=== PATIENT | female | born 1995 | race Caucasian/White ===

== ENCOUNTER 2016-11-29 14:08 | Outpatient (CLI) | payer MEDICAID ==
[2016-11-29 14:51] LABS: APPEARANCE,URINE SLIGHTLY-CLOUDY; BILIRUBIN,URINE NEGATIVE (NEGATIVE); GLUCOSE, URINE NEGATIVE (NEGATIVE); KETONES,URINE NEGATIVE (NEGATIVE); LEUKOCYTE ESTERASE,URINE LARGE (NEGATIVE); NITRITE,URINE NEGATIVE (NEGATIVE); PROTEIN,URINE NEGATIVE (NEGATIVE); UROBILINOGEN,URINE NEGATIVE mg/dL (<2.0)
[2016-11-29 15:01] LABS: URINE BARBITURATES SCREEN NEGATIVE; URINE METHADONE SCREEN NEGATIVE; URINE OPIATES LOW NEGATIVE; URINE PHENCYCLIDINE SCREEN NEGATIVE
--- NOTE | 2016-11-29 16:45 | L&D Flow Sheet ---
LD Flowsheet Datetime Report Generated by CPN: 11/29/2016 16:45 Datetime: 11/29/2016 14:40 Vital Signs Stage of : OB Triage (Priscilla Independence, RN) Communication Communication: Provider at Bedside (Priscilla Rai RN) Provider Notified (Name): Dr. Rutherford notified of patient OB status and history of chronic migraine hemiplegic and chief complaints of blurry vision, photophobia, left sided numbness and weakness, and left arm weakness for the past 2 days. Patient is without any OB complaints at this time. FHT are appropriate for gestational age., denies contractions, or vaginal bleeding. Orders received to discharge patient back to the ER to be evaluated for non-OB complaint. Patient offfered opportunity to ask questions, which were answered. She is agreeable to plan of care. (Priscilla Rai RN) Datetime: 11/29/2016 14:39 Uterine Activity Monitor Mode: External; Palpation (Priscilla Rai RN) Frequency (min): none (Priscilla Cecelia, RN) Resting Tone (Palpate): Relaxed (Priscilla Rai, RN) Contraction Comments: no contractions noted or palpated. Patient denies contractions. (Priscilla Rai, RN) Assessment A Monitor Mode: External US (Priscilla Rai, RN) FHR Baseline Rate : 145 (Priscilla Rai, RN) Comments: appropriate for gestational age. Patient reports positive movement. (Priscilla Rai, ) Datetime: 11/29/2016 14:31 Vital Signs Stage of : Antepartum (Priscilla Rai RN) NBP Sys/Jacqueline/Mean (mmHg): 104 (QS system process) : 53 (QS system process) : 76 (QS system process) Pulse: 85 (QS system process) Respirations: 14 (Priscilla Rai RN) Temperature (F): 97.9 (Priscilla Rai RN) Temperature (C): 36.6 (QS system process) Temperature Route: Oral (Priscilla Rai RN) LaborFlag: Antepartum (QS system process) Datetime: 11/29/2016 14:30 Monitor Interventions for UA: [place] Adjusted (Priscilla Rai, NERY) Assessment A Monitor Mode: External US (Priscilla Rai RN) Monitor Interventions for FHR: Ultrasound Adjusted (Priscilla Rai RN) Pain Pain Scale: 0 (Priscilla Independence, RN) Pain Presence: None/Denies (Priscilla Independence, RN) Pain Type: N/A (Priscilla Independence, RN) Vaginal Exam Vaginal Bleeding: None (Priscilla Independence, RN) Maternal Assessment Level of Consciousness: Fully Conscious (Priscilla Independence, RN) DTR's/Clonus: DTRs 2+; No Clonus (Priscilla Independence, RN) Headache: Denies (Priscilla Cecelia, RN) Breath Sounds, Left: Clear and Equal (Priscilla Independence, RN) Breath Sounds, Right: Clear and Equal (Priscilla Independence, RN) Nausea/Vomiting: Denies (Priscilla Independence, RN) RUQ Epigastric Pain: Denies (Priscilla Independence, RN) Patient Care Oxygen Method: Room Air (Priscilla Rai RN) Patient Position/Activity: Right Tilt; Semi-Fowlers (Priscilla Rai RN) Comfort Measures: Breathing/Relaxation (Priscilla Rai RN) I/O Interventions: Clear Liquids Given (Priscilla Rai RN) Provider Reviewed Strip: Yes (Priscilla Rai RN) Teaching Instructional Method: Verbal; Patient Instructed; Verbalized Understanding (Priscilla Rai RN) Plan of Care: Plan of Care Discussed (Priscilla Rai RN) Unit Routine: Brooks to Room; Call Cobian; Bed; Unit Personnel; Handwashing; Flu/Illness Precautions; Monitoring (Priscilla Rai RN) Pain Management: Pain Scale/Goals; Comfort Measures (Priscilla Rai RN) Related: Common Discomforts of ; Maternal Physical Changes; Maternal Emotional Changes; Nutrition; Hydration; Activity and Rest (Priscilla Rai RN) LaborFlag: Antepartum (QS system process) Datetime: 11/29/2016 14:24 Vital Signs Stage of : Antepartum (Priscillazulma Rai, RN)
--- NOTE | 2016-11-29 16:45 | L&D Discharge Summary ---
OB Discharge Summary Datetime Report Generated by CPN: 11/29/2016 16:45 DISCHARGE DIAGNOSIS Diagnosis/Symptoms: Other Diagnoses/Symptoms Other: not in labor, no OB complaints. Sen tback to ER for eval of left sided numbness and left arm weakness. Gestation: 26.1 Number of Babies in Womb: 1 DIET/ACTIVITY/RESTRICTIONS Diet: Regular Activity: Normal Activity TEACHING/INSTRUCTIONS/REFERRALS Instructions Given To: patient Instructions Understood: Patient Verbalized Understanding; Support Person Verbalized Understanding Referrals: None DISCHARGE INFORMATION Discharged AMA: No Discharge Date/Time: 11/29/2016 14:44 Discharged To: Other Discharge Provider Name: Dr. Rutherford Accompanied By: MANAGER OF FINANCIAL REPORTING Discharge Method: Wheelchair Condition: Stable FOLLOW UP INFORMATION Follow Up With: [facility] Follow Up On: As Scheduled Follow Up Phone Number: [facility] - Comments: Patient discharged to ER for further eval of non-OB complaint of left sided numbness and left arm weakness, blurry vision, and photophobia. GENERAL INSTR-CALL PROVIDER IF: Contractions: Contractions or cramps become more frequent than 8 in one hour or 4 in 20 minutes; Regular painful contractions every 5 minutes or less for one hour. Time your contractions from the beginning of one to the beginning of the next Pressure: Pressure in your vagina or lower abdomen that may feel like the baby is pushing down Period Like Cramps: Period-like cramps or low dull backache that may come and go Cramps/Diarrhea: Abdominal cramps that may be accompanied by diarrhea Gush of Fluid/Blood: Gush of fluid or blood from your vagina (it is normal to have spotting after vaginal exam or intercourse) Vaginal Discharge: Change in the type or amount of vaginal discharge Decreased Movement: Your baby is not moving as much as usual- 4 movements in 1 hour after drinking and resting on side Temperature: Temperature greater than 100.0(F) orally
--- NOTE | 2016-11-29 16:45 | L&D General Admission ---
General Admit Datetime Report Generated by CPN: 11/29/2016 16:45 INFORMATION Patient Age: 21 (01/29/2016 16:20:QS system process) EDC: 03/06/2017 00:00 (11/29/2016 14:34:Priscilla Rai RN) : 6 (11/29/2016 14:34:Priscilla Rai RN) Livin (11/29/2016 14:34:Priscilla Rai RN) Baby, Number in Womb: 1 (11/29/2016 14:34:Priscilla Rai RN) CARE Primary Supervisor [employer] Production: [facility] (11/29/2016 14:34:Priscilla Rai RN) Adequate Care: Yes (11/29/2016 14:34:Priscilla Rai RN) Height (in): 65 (11/29/2016 14:26:QS system process) ALLERGIES Medication Allergy: Yes (11/29/2016 14:34:Priscilla Rai RN) Medication Allergies: nitrofurantoin macrocrystalline/MO/Generalized angel (11/29/2016); nitrofurantoin/MO/Generalized angel (11/29/2016) (11/29/2016 14:26:QS system process) Medication Allergies: nitrofurantoin macrocrystalline/MO/Generalized angel (10/26/2015); nitrofurantoin/MO/Generalized angel (10/26/2015) (06/17/2016 07:17:QS system process) Medication Allergies: nitrofurantoin macrocrystal/MO/Generalized angel (10/26/2015); nitrofurantoin/MO/Generalized angel (10/26/2015) (01/29/2016 16:20:QS system process) Latex Allergy: No Latex Allergies (11/29/2016 14:34:Priscilla Rai RN) Food Allergies: denies (11/29/2016 14:34:Priscilla Rai RN) Environmental Allergies: denies (11/29/2016 14:34:Priscilla Rai RN) COMMUNICATION Primary Language: Romanian (11/29/2016 14:34:Priscilla Rai RN) Communication Barrier(s): None (11/29/2016 14:34:Priscilla Rai RN) DEMOGRAPHICS Address: [address] [place] [id number] (11/29/2016 14:08:QS system process) Address: [id number] [address] (01/29/2016 16:20:QS system process) Zipcode: [phone] (01/29/2016 16:20:QS system process) Home (01/29/2016 16:20:QS system process) Work (11/29/2016 14:08:QS system process) SSN: [id number] (01/29/2016 16:20:QS system process) Next of Kin Name: KARIE ABDALLA (01/29/2016 16:20:QS system process) Next of Kin (01/29/2016 16:20:QS system process) Next of Kin Relationship: MO (01/29/2016 16:20:QS system process) Date of : 1995 (01/29/2016 16:20:QS system process) Marital Status: Single (01/29/2016 16:20:QS system process) Sex: Female (01/29/2016 16:20:QS system process) Race: (01/29/2016 16:20:QS system process) Ethnicity: Non- or (01/29/2016 16:20:QS system process) Muslim: None (11/29/2016 14:08:QS system process) Muslim: Other (01/29/2016 16:20:QS system process) DRUG AND ALCOHOL USE Alcohol: No (11/29/2016 14:34:Priscilla Rai RN) Cigarettes: Never Smoker. [id number] (11/29/2016 14:34:Priscilla Rai RN) Marijuana: No (11/29/2016 14:34:Priscilla Rai RN) Cocaine: No (11/29/2016 14:34:Priscilla Rai RN) Other Illicit Drugs: No (11/29/2016 14:34:Priscilla Rai RN) LIVING SITUATION/DISCHARGE PLAN Car Seat for Discharge: Yes (11/29/2016 14:34:Priscilla Rai RN) Adoption Requested: No (11/29/2016 14:34:Priscilla Rai RN) Pt Contact w/ Post : N/A (11/29/2016 14:34:Priscilla Rai RN) LABS Hemoglobin: 12.0 (08/06/2016 17:55:QS system process) Hematocrit: 36.1 (08/06/2016 17:55:QS system process) MCV: 81 (08/06/2016 17:55:QS system process)
--- NOTE | 2016-11-29 16:45 | L&D Current Admission ---
Current Admit Datetime Report Generated by CPN: 11/29/2016 16:45 ADMISSION INFORMATION Chief Complaint: Other (Annotations: photophobia, blurry vision, left sided numbness and left arm weakness. ) (11/29/2016 14:30:Priscilla Rai RN)
--- NOTE | 2016-11-29 16:45 | Antepartum Discharge Summary ---
Antepartum DC Datetime Report Generated by CPN: 11/29/2016 16:45 DIET/ACTIVITY/RESTRICTIONS Diet: Regular (11/29/2016 14:44:Priscilla Rai, RN) Activity: Normal Activity (11/29/2016 14:44:Priscilla Rai, RN) TEACHING/INSTRUCTIONS/REFERRALS Instructions Given To: patient (11/29/2016 14:44:Priscilla Rai, RN) Instructions Understood: Patient Verbalized Understanding; Support Person Verbalized Understanding (11/29/2016 14:44:Priscilla Rai RN) Referrals: None (11/29/2016 14:44:Priscilla Rai RN) DISCHARGE INFORMATION Discharged AMA: No (11/29/2016 14:44:Priscilla Rai RN) Discharge Date/Time: 11/29/2016 14:44 (11/29/2016 14:44:Priscilla Rai RN) Discharged To: Other (11/29/2016 14:44:Priscilla Rai RN) Discharge Provider Name: Dr. Rutherford (11/29/2016 14:44:Priscilla Rai RN) Accompanied By: HEATER ROOM HELPER (11/29/2016 14:44:Priscilla Rai RN) Discharge Method: Wheelchair (11/29/2016 14:44:Priscilla Rai RN) Condition: Stable (11/29/2016 14:44:Priscilla Rai RN) FOLLOW UP INFORMATION Follow Up With: [facility] (11/29/2016 14:44:Priscilla Rai RN) Follow Up On: As Scheduled (11/29/2016 14:44:Priscilla Rai RN) Follow Up Phone Number: [facility] - (11/29/2016 14:44:Priscilla Rai RN) Comments: Patient discharged to ER for further eval of non-OB complaint of left sided numbness and left arm weakness, blurry vision, and photophobia. (11/29/2016 14:44:Priscilla Rai RN) GENERAL INSTR-CALL PROVIDER IF: Contractions: Contractions or cramps become more frequent than 8 in one hour or 4 in 20 minutes; Regular painful contractions every 5 minutes or less for one hour. Time your contractions from the beginning of one to the beginning of the next (11/29/2016 14:44:Priscilla Rai RN) Pressure: Pressure in your vagina or lower abdomen that may feel like the baby is pushing down (11/29/2016 14:44:Priscilla Rai RN) Period Like Cramps: Period-like cramps or low dull backache that may come and go (11/29/2016 14:44:Priscilla Rai RN) Cramps/Diarrhea: Abdominal cramps that may be accompanied by diarrhea (11/29/2016 14:44:Priscilla Rai RN) Gush of Fluid/Blood: Gush of fluid or blood from your vagina (it is normal to have spotting after vaginal exam or intercourse) (11/29/2016 14:44:Priscilla Rai RN) Vaginal Discharge: Change in the type or amount of vaginal discharge (11/29/2016 14:44:Priscilla Rai RN) Decreased Movement: Your baby is not moving as much as usual- 4 movements in 1 hour after drinking and resting on side (11/29/2016 14:44:Priscilla Rai RN) Temperature: Temperature greater than 100.0(F) orally (11/29/2016 14:44:Priscilla Rai RN) Hypertension Signs/Symptoms: Severe headache which is not relieved 30 minutes after taking Tylenol(Acetaminophen); Blurry vision or spots before your eyes; Severe heartburn or pain on the upper right side of your abdomen that is not relieved by an antacid; Increased swelling in your face, hands or feet (11/29/2016 14:44:Priscilla Rai RN) Urinary Output: Decreased urinary output or dark colored urine (11/29/2016 14:44:Priscilla Rai RN)
--- NOTE | 2016-11-29 17:16 | L&D Discharge Summary ---
OB Discharge Summary Datetime Report Generated by CPN: 11/29/2016 17:16 DISCHARGE DIAGNOSIS Diagnosis/Symptoms: Other Diagnoses/Symptoms Other: not in labor, no OB complaints. Sen tback to ER for eval of left sided numbness and left arm weakness. Number of Babies in Womb: 1 DIET/ACTIVITY/RESTRICTIONS Diet: Regular Activity: Normal Activity TEACHING/INSTRUCTIONS/REFERRALS Instructions Given To: patient Instructions Understood: Patient Verbalized Understanding; Support Person Verbalized Understanding Referrals: None DISCHARGE INFORMATION Discharged AMA: No Discharge Date/Time: 11/29/2016 14:44 Discharged To: Other Discharge Provider Name: Dr. Rutherford Accompanied By: SENIOR CONSULTANT Discharge Method: Wheelchair Condition: Stable FOLLOW UP INFORMATION Follow Up With: [facility] Follow Up On: As Scheduled Follow Up Phone Number: [facility] - Comments: Patient discharged to ER for further eval of non-OB complaint of left sided numbness and left arm weakness, blurry vision, and photophobia. GENERAL INSTR-CALL PROVIDER IF: Contractions: Contractions or cramps become more frequent than 8 in one hour or 4 in 20 minutes; Regular painful contractions every 5 minutes or less for one hour. Time your contractions from the beginning of one to the beginning of the next Pressure: Pressure in your vagina or lower abdomen that may feel like the baby is pushing down Period Like Cramps: Period-like cramps or low dull backache that may come and go Cramps/Diarrhea: Abdominal cramps that may be accompanied by diarrhea Gush of Fluid/Blood: Gush of fluid or blood from your vagina (it is normal to have spotting after vaginal exam or intercourse) Vaginal Discharge: Change in the type or amount of vaginal discharge Decreased Movement: Your baby is not moving as much as usual- 4 movements in 1 hour after drinking and resting on side Temperature: Temperature greater than 100.0(F) orally
--- NOTE | 2016-11-29 22:45 | L&D Current Admission ---
Current Admit Datetime Report Generated by CPN: 11/29/2016 22:45 ADMISSION INFORMATION Chief Complaint: Other (Annotations: photophobia, blurry vision, left sided numbness and left arm weakness. ) (11/29/2016 14:30:Priscilla Rai RN)
--- NOTE | 2016-11-29 22:45 | L&D Discharge Summary ---
OB Discharge Summary Datetime Report Generated by CPN: 11/29/2016 22:45 DISCHARGE DIAGNOSIS Diagnosis/Symptoms: Other Diagnoses/Symptoms Other: not in labor, no OB complaints. Sen tback to ER for eval of left sided numbness and left arm weakness. Gestation: 26.1 Number of Babies in Womb: 1 DIET/ACTIVITY/RESTRICTIONS Diet: Regular Activity: Normal Activity TEACHING/INSTRUCTIONS/REFERRALS Instructions Given To: patient Instructions Understood: Patient Verbalized Understanding; Support Person Verbalized Understanding Referrals: None DISCHARGE INFORMATION Discharged AMA: No Discharge Date/Time: 11/29/2016 14:44 Discharged To: Other Discharge Provider Name: Dr. Rutherford Accompanied By: RUG CLEANER HAND Discharge Method: Wheelchair Condition: Stable FOLLOW UP INFORMATION Follow Up With: [facility] Follow Up On: As Scheduled Follow Up Phone Number: [facility] - Comments: Patient discharged to ER for further eval of non-OB complaint of left sided numbness and left arm weakness, blurry vision, and photophobia. GENERAL INSTR-CALL PROVIDER IF: Contractions: Contractions or cramps become more frequent than 8 in one hour or 4 in 20 minutes; Regular painful contractions every 5 minutes or less for one hour. Time your contractions from the beginning of one to the beginning of the next Pressure: Pressure in your vagina or lower abdomen that may feel like the baby is pushing down Period Like Cramps: Period-like cramps or low dull backache that may come and go Cramps/Diarrhea: Abdominal cramps that may be accompanied by diarrhea Gush of Fluid/Blood: Gush of fluid or blood from your vagina (it is normal to have spotting after vaginal exam or intercourse) Vaginal Discharge: Change in the type or amount of vaginal discharge Decreased Movement: Your baby is not moving as much as usual- 4 movements in 1 hour after drinking and resting on side Temperature: Temperature greater than 100.0(F) orally
--- NOTE | 2016-11-29 22:45 | Antepartum Discharge Summary ---
Antepartum DC Datetime Report Generated by CPN: 11/29/2016 22:45 DIET/ACTIVITY/RESTRICTIONS Diet: Regular (11/29/2016 14:44:Priscilla Rai, RN) Activity: Normal Activity (11/29/2016 14:44:Priscilla Rai, RN) TEACHING/INSTRUCTIONS/REFERRALS Instructions Given To: patient (11/29/2016 14:44:Priscilla Rai, RN) Instructions Understood: Patient Verbalized Understanding; Support Person Verbalized Understanding (11/29/2016 14:44:Priscilla Rai RN) Referrals: None (11/29/2016 14:44:Priscilla Rai RN) DISCHARGE INFORMATION Discharged AMA: No (11/29/2016 14:44:Priscilla Rai RN) Discharge Date/Time: 11/29/2016 14:44 (11/29/2016 14:44:Priscilla Rai RN) Discharged To: Other (11/29/2016 14:44:Priscilla Rai RN) Discharge Provider Name: Dr. Rutherford (11/29/2016 14:44:Priscilla Rai RN) Accompanied By: GREENHOUSE FLORIST (11/29/2016 14:44:Priscilla Rai RN) Discharge Method: Wheelchair (11/29/2016 14:44:Priscilla Rai RN) Condition: Stable (11/29/2016 14:44:Priscilla Rai RN) FOLLOW UP INFORMATION Follow Up With: [facility] (11/29/2016 14:44:Priscilla Rai RN) Follow Up On: As Scheduled (11/29/2016 14:44:Priscilla Rai RN) Follow Up Phone Number: [facility] - (11/29/2016 14:44:Priscilla Rai RN) Comments: Patient discharged to ER for further eval of non-OB complaint of left sided numbness and left arm weakness, blurry vision, and photophobia. (11/29/2016 14:44:Priscilla Rai RN) GENERAL INSTR-CALL PROVIDER IF: Contractions: Contractions or cramps become more frequent than 8 in one hour or 4 in 20 minutes; Regular painful contractions every 5 minutes or less for one hour. Time your contractions from the beginning of one to the beginning of the next (11/29/2016 14:44:Priscilla Rai RN) Pressure: Pressure in your vagina or lower abdomen that may feel like the baby is pushing down (11/29/2016 14:44:Priscilla Rai RN) Period Like Cramps: Period-like cramps or low dull backache that may come and go (11/29/2016 14:44:Priscilla Rai RN) Cramps/Diarrhea: Abdominal cramps that may be accompanied by diarrhea (11/29/2016 14:44:Priscilla Rai RN) Gush of Fluid/Blood: Gush of fluid or blood from your vagina (it is normal to have spotting after vaginal exam or intercourse) (11/29/2016 14:44:Priscilla Rai RN) Vaginal Discharge: Change in the type or amount of vaginal discharge (11/29/2016 14:44:Priscilla Rai RN) Decreased Movement: Your baby is not moving as much as usual- 4 movements in 1 hour after drinking and resting on side (11/29/2016 14:44:Priscilla Rai RN) Temperature: Temperature greater than 100.0(F) orally (11/29/2016 14:44:Priscilla Rai RN) Hypertension Signs/Symptoms: Severe headache which is not relieved 30 minutes after taking Tylenol(Acetaminophen); Blurry vision or spots before your eyes; Severe heartburn or pain on the upper right side of your abdomen that is not relieved by an antacid; Increased swelling in your face, hands or feet (11/29/2016 14:44:Priscilla Rai RN) Urinary Output: Decreased urinary output or dark colored urine (11/29/2016 14:44:Priscilla Rai RN)
--- NOTE | 2016-11-29 22:45 | L&D General Admission ---
General Admit Datetime Report Generated by CPN: 11/29/2016 22:45 INFORMATION Patient Age: 21 (01/29/2016 16:20:QS system process) EDC: 03/06/2017 00:00 (11/29/2016 14:34:Priscilla Rai RN) : 6 (11/29/2016 14:34:Priscilla Rai RN) Livin (11/29/2016 14:34:Priscilla Rai RN) Baby, Number in Womb: 1 (11/29/2016 14:34:Priscilla Rai RN) CARE Primary Tuck Pointer: [facility] (11/29/2016 14:34:Priscilla Rai RN) Adequate Care: Yes (11/29/2016 14:34:Priscilla Rai RN) Height (in): 65 (11/29/2016 14:26:QS system process) ALLERGIES Medication Allergy: Yes (11/29/2016 14:34:Priscilla Rai RN) Medication Allergies: nitrofurantoin macrocrystalline/MO/Generalized angel (11/29/2016); nitrofurantoin/MO/Generalized angel (11/29/2016) (11/29/2016 14:26:QS system process) Medication Allergies: nitrofurantoin macrocrystalline/MO/Generalized angel (10/26/2015); nitrofurantoin/MO/Generalized angel (10/26/2015) (06/17/2016 07:17:QS system process) Medication Allergies: nitrofurantoin macrocrystal/MO/Generalized angel (10/26/2015); nitrofurantoin/MO/Generalized angel (10/26/2015) (01/29/2016 16:20:QS system process) Latex Allergy: No Latex Allergies (11/29/2016 14:34:Priscilla Rai RN) Food Allergies: denies (11/29/2016 14:34:Priscilla Rai RN) Environmental Allergies: denies (11/29/2016 14:34:Priscilla Rai RN) COMMUNICATION Primary Language: Sami (11/29/2016 14:34:Priscilla Rai RN) Communication Barrier(s): None (11/29/2016 14:34:Priscilla Rai RN) DEMOGRAPHICS Address: [address] [place] [id number] (11/29/2016 14:08:QS system process) Address: [address] [address] (01/29/2016 16:20:QS system process) Zipcode: [phone] (01/29/2016 16:20:QS system process) Home (01/29/2016 16:20:QS system process) Work (11/29/2016 14:08:QS system process) SSN: [id number] (01/29/2016 16:20:QS system process) Next of Kin Name: KARIE ABDALLA (01/29/2016 16:20:QS system process) Next of Kin (01/29/2016 16:20:QS system process) Next of Kin Relationship: MO (01/29/2016 16:20:QS system process) Date of : 1995 (01/29/2016 16:20:QS system process) Marital Status: Single (01/29/2016 16:20:QS system process) Sex: Female (01/29/2016 16:20:QS system process) Race: (01/29/2016 16:20:QS system process) Ethnicity: Non- or (01/29/2016 16:20:QS system process) Zoroastrian: None (11/29/2016 14:08:QS system process) Zoroastrian: Other (01/29/2016 16:20:QS system process) DRUG AND ALCOHOL USE Alcohol: No (11/29/2016 14:34:Priscilla Rai RN) Cigarettes: Never Smoker. [id number] (11/29/2016 14:34:Priscilla Rai RN) Marijuana: No (11/29/2016 14:34:Priscilla Rai RN) Cocaine: No (11/29/2016 14:34:Priscilla Rai RN) Other Illicit Drugs: No (11/29/2016 14:34:Priscilla Rai RN) LIVING SITUATION/DISCHARGE PLAN Car Seat for Discharge: Yes (11/29/2016 14:34:Priscilla Rai RN) Adoption Requested: No (11/29/2016 14:34:Priscilla Rai RN) Pt Contact w/ Post : N/A (11/29/2016 14:34:Priscilla Rai RN) LABS Hemoglobin: 12.0 (08/06/2016 17:55:QS system process) Hematocrit: 36.1 (08/06/2016 17:55:QS system process) MCV: 81 (08/06/2016 17:55:QS system process)
--- NOTE | 2016-11-30 04:45 | L&D Current Admission ---
Current Admit Datetime Report Generated by CPN: 11/30/2016 04:45 ADMISSION INFORMATION Chief Complaint: Other (Annotations: photophobia, blurry vision, left sided numbness and left arm weakness. ) (11/29/2016 14:30:Priscilla Rai RN)
--- NOTE | 2016-11-30 04:45 | L&D Discharge Summary ---
OB Discharge Summary Datetime Report Generated by CPN: 11/30/2016 04:45 DISCHARGE DIAGNOSIS Diagnosis/Symptoms: Other Diagnoses/Symptoms Other: not in labor, no OB complaints. Sen tback to ER for eval of left sided numbness and left arm weakness. Gestation: 26.1 Number of Babies in Womb: 1 DIET/ACTIVITY/RESTRICTIONS Diet: Regular Activity: Normal Activity TEACHING/INSTRUCTIONS/REFERRALS Instructions Given To: patient Instructions Understood: Patient Verbalized Understanding; Support Person Verbalized Understanding Referrals: None DISCHARGE INFORMATION Discharged AMA: No Discharge Date/Time: 11/29/2016 14:44 Discharged To: Other Discharge Provider Name: Dr. Rutherford Accompanied By: JACQUARD TWINE POLISHER OPERATOR Discharge Method: Wheelchair Condition: Stable FOLLOW UP INFORMATION Follow Up With: [facility] Follow Up On: As Scheduled Follow Up Phone Number: [facility] - Comments: Patient discharged to ER for further eval of non-OB complaint of left sided numbness and left arm weakness, blurry vision, and photophobia. GENERAL INSTR-CALL PROVIDER IF: Contractions: Contractions or cramps become more frequent than 8 in one hour or 4 in 20 minutes; Regular painful contractions every 5 minutes or less for one hour. Time your contractions from the beginning of one to the beginning of the next Pressure: Pressure in your vagina or lower abdomen that may feel like the baby is pushing down Period Like Cramps: Period-like cramps or low dull backache that may come and go Cramps/Diarrhea: Abdominal cramps that may be accompanied by diarrhea Gush of Fluid/Blood: Gush of fluid or blood from your vagina (it is normal to have spotting after vaginal exam or intercourse) Vaginal Discharge: Change in the type or amount of vaginal discharge Decreased Movement: Your baby is not moving as much as usual- 4 movements in 1 hour after drinking and resting on side Temperature: Temperature greater than 100.0(F) orally
--- NOTE | 2016-11-30 04:45 | L&D General Admission ---
General Admit Datetime Report Generated by CPN: 11/30/2016 04:45 INFORMATION Patient Age: 21 (01/29/2016 16:20:QS system process) EDC: 03/06/2017 00:00 (11/29/2016 14:34:Priscilla Rai RN) : 6 (11/29/2016 14:34:Priscilla Rai RN) Livin (11/29/2016 14:34:Priscilla Rai RN) Baby, Number in Womb: 1 (11/29/2016 14:34:Priscilla Rai RN) CARE Primary Deliverer Merchandise: [facility] (11/29/2016 14:34:Priscilla Rai RN) Adequate Care: Yes (11/29/2016 14:34:Priscilla Rai RN) Height (in): 65 (11/29/2016 14:26:QS system process) ALLERGIES Medication Allergy: Yes (11/29/2016 14:34:Priscilla Rai RN) Medication Allergies: nitrofurantoin macrocrystalline/MO/Generalized angel (11/29/2016); nitrofurantoin/MO/Generalized angel (11/29/2016) (11/29/2016 14:26:QS system process) Medication Allergies: nitrofurantoin macrocrystalline/MO/Generalized angel (10/26/2015); nitrofurantoin/MO/Generalized angel (10/26/2015) (06/17/2016 07:17:QS system process) Medication Allergies: nitrofurantoin macrocrystal/MO/Generalized angel (10/26/2015); nitrofurantoin/MO/Generalized angel (10/26/2015) (01/29/2016 16:20:QS system process) Latex Allergy: No Latex Allergies (11/29/2016 14:34:Priscilla Rai RN) Food Allergies: denies (11/29/2016 14:34:Priscilla Rai RN) Environmental Allergies: denies (11/29/2016 14:34:Priscilla Rai RN) COMMUNICATION Primary Language: Welsh (11/29/2016 14:34:Priscilla Rai RN) Communication Barrier(s): None (11/29/2016 14:34:Priscilla Rai RN) DEMOGRAPHICS Address: [address] [place] [phone] (11/29/2016 14:08:QS system process) Address: [address] [address] (01/29/2016 16:20:QS system process) Zipcode: [phone] (01/29/2016 16:20:QS system process) Home (01/29/2016 16:20:QS system process) Work (11/29/2016 14:08:QS system process) SSN: [id number] (01/29/2016 16:20:QS system process) Next of Kin Name: KARIE ABDALLA (01/29/2016 16:20:QS system process) Next of Kin (01/29/2016 16:20:QS system process) Next of Kin Relationship: MO (01/29/2016 16:20:QS system process) Date of : 1995 (01/29/2016 16:20:QS system process) Marital Status: Single (01/29/2016 16:20:QS system process) Sex: Female (01/29/2016 16:20:QS system process) Race: (01/29/2016 16:20:QS system process) Ethnicity: Non- or (01/29/2016 16:20:QS system process) Congregation: None (11/29/2016 14:08:QS system process) Congregation: Other (01/29/2016 16:20:QS system process) DRUG AND ALCOHOL USE Alcohol: No (11/29/2016 14:34:Priscilla Rai RN) Cigarettes: Never Smoker. [id number] (11/29/2016 14:34:Priscilla Rai RN) Marijuana: No (11/29/2016 14:34:Priscilla Rai RN) Cocaine: No (11/29/2016 14:34:Priscilla Rai RN) Other Illicit Drugs: No (11/29/2016 14:34:Priscilla Rai RN) LIVING SITUATION/DISCHARGE PLAN Car Seat for Discharge: Yes (11/29/2016 14:34:Priscilla Rai RN) Adoption Requested: No (11/29/2016 14:34:Priscilla Rai RN) Pt Contact w/ Post : N/A (11/29/2016 14:34:Priscilla Rai RN) LABS Hemoglobin: 12.0 (08/06/2016 17:55:QS system process) Hematocrit: 36.1 (08/06/2016 17:55:QS system process) MCV: 81 (08/06/2016 17:55:QS system process)
--- NOTE | 2016-11-30 04:45 | Antepartum Discharge Summary ---
Antepartum DC Datetime Report Generated by CPN: 11/30/2016 04:45 DIET/ACTIVITY/RESTRICTIONS Diet: Regular (11/29/2016 14:44:Priscilla Rai, RN) Activity: Normal Activity (11/29/2016 14:44:Priscilla Ria, RN) TEACHING/INSTRUCTIONS/REFERRALS Instructions Given To: patient (11/29/2016 14:44:Priscilla Rai, RN) Instructions Understood: Patient Verbalized Understanding; Support Person Verbalized Understanding (11/29/2016 14:44:Priscilla Rai RN) Referrals: None (11/29/2016 14:44:Priscilla Rai RN) DISCHARGE INFORMATION Discharged AMA: No (11/29/2016 14:44:Priscilla Rai RN) Discharge Date/Time: 11/29/2016 14:44 (11/29/2016 14:44:Priscilla Rai RN) Discharged To: Other (11/29/2016 14:44:Priscilla Rai RN) Discharge Provider Name: Dr. Rutherford (11/29/2016 14:44:Priscilla Rai RN) Accompanied By: ACADEMIC SUPPORT DIRECTOR (11/29/2016 14:44:Priscilla Rai RN) Discharge Method: Wheelchair (11/29/2016 14:44:Priscilla Rai RN) Condition: Stable (11/29/2016 14:44:Priscilla Rai RN) FOLLOW UP INFORMATION Follow Up With: [facility] (11/29/2016 14:44:Priscilla Rai RN) Follow Up On: As Scheduled (11/29/2016 14:44:Priscilla Rai RN) Follow Up Phone Number: [facility] - (11/29/2016 14:44:Priscilla Rai RN) Comments: Patient discharged to ER for further eval of non-OB complaint of left sided numbness and left arm weakness, blurry vision, and photophobia. (11/29/2016 14:44:Priscilla Rai RN) GENERAL INSTR-CALL PROVIDER IF: Contractions: Contractions or cramps become more frequent than 8 in one hour or 4 in 20 minutes; Regular painful contractions every 5 minutes or less for one hour. Time your contractions from the beginning of one to the beginning of the next (11/29/2016 14:44:Priscilla Rai RN) Pressure: Pressure in your vagina or lower abdomen that may feel like the baby is pushing down (11/29/2016 14:44:Priscilla Rai RN) Period Like Cramps: Period-like cramps or low dull backache that may come and go (11/29/2016 14:44:Priscilla Rai RN) Cramps/Diarrhea: Abdominal cramps that may be accompanied by diarrhea (11/29/2016 14:44:Priscilla Rai RN) Gush of Fluid/Blood: Gush of fluid or blood from your vagina (it is normal to have spotting after vaginal exam or intercourse) (11/29/2016 14:44:Priscilla Rai RN) Vaginal Discharge: Change in the type or amount of vaginal discharge (11/29/2016 14:44:Priscilla Rai RN) Decreased Movement: Your baby is not moving as much as usual- 4 movements in 1 hour after drinking and resting on side (11/29/2016 14:44:Priscilla Rai RN) Temperature: Temperature greater than 100.0(F) orally (11/29/2016 14:44:Priscilla Rai RN) Hypertension Signs/Symptoms: Severe headache which is not relieved 30 minutes after taking Tylenol(Acetaminophen); Blurry vision or spots before your eyes; Severe heartburn or pain on the upper right side of your abdomen that is not relieved by an antacid; Increased swelling in your face, hands or feet (11/29/2016 14:44:Priscilla Rai RN) Urinary Output: Decreased urinary output or dark colored urine (11/29/2016 14:44:Priscilla Rai RN)
--- NOTE | 2016-11-30 10:45 | L&D Discharge Summary ---
OB Discharge Summary Datetime Report Generated by CPN: 11/30/2016 10:45 DISCHARGE DIAGNOSIS Diagnosis/Symptoms: Other Diagnoses/Symptoms Other: not in labor, no OB complaints. Sen tback to ER for eval of left sided numbness and left arm weakness. Gestation: 26.1 Number of Babies in Womb: 1 DIET/ACTIVITY/RESTRICTIONS Diet: Regular Activity: Normal Activity TEACHING/INSTRUCTIONS/REFERRALS Instructions Given To: patient Instructions Understood: Patient Verbalized Understanding; Support Person Verbalized Understanding Referrals: None DISCHARGE INFORMATION Discharged AMA: No Discharge Date/Time: 11/29/2016 14:44 Discharged To: Other Discharge Provider Name: Dr. Rutherford Accompanied By: NUTRITION SPECIALIST Discharge Method: Wheelchair Condition: Stable FOLLOW UP INFORMATION Follow Up With: [email or web address] Follow Up On: As Scheduled Follow Up Phone Number: [email or web address] - Comments: Patient discharged to ER for further eval of non-OB complaint of left sided numbness and left arm weakness, blurry vision, and photophobia. GENERAL INSTR-CALL PROVIDER IF: Contractions: Contractions or cramps become more frequent than 8 in one hour or 4 in 20 minutes; Regular painful contractions every 5 minutes or less for one hour. Time your contractions from the beginning of one to the beginning of the next Pressure: Pressure in your vagina or lower abdomen that may feel like the baby is pushing down Period Like Cramps: Period-like cramps or low dull backache that may come and go Cramps/Diarrhea: Abdominal cramps that may be accompanied by diarrhea Gush of Fluid/Blood: Gush of fluid or blood from your vagina (it is normal to have spotting after vaginal exam or intercourse) Vaginal Discharge: Change in the type or amount of vaginal discharge Decreased Movement: Your baby is not moving as much as usual- 4 movements in 1 hour after drinking and resting on side Temperature: Temperature greater than 100.0(F) orally
--- NOTE | 2016-11-30 10:45 | L&D Admission Assessment ---
LD ADM ASMT Datetime Report Generated by CPN: 11/30/2016 10:45 PATIENT ASSESSMENT Assessment Type: Transfer/Discharge (11/29/2016 14:45:Priscilla Montezuma, RN) Assessment Type: Transfer/Discharge (11/29/2016 14:30:Priscilla Zeeard, RN) WEIGHT Weight (lb): 187 (11/29/2016 14:26:QS system process) Weight (kg): 85.0 (11/29/2016 14:26:QS system process) PAIN Pain Scale: 0 (11/29/2016 14:30:Priscilla Rai, NERY) Pain Presence: None/Denies (11/29/2016 14:30:Priscilla Rai, NERY) Pain Type: N/A (11/29/2016 14:30:Priscilla Rai, NERY) CONTRACTIONS Frequency (min): none (11/29/2016 14:39:Priscilla Rai, NERY) Resting Tone [place]: Relaxed (11/29/2016 14:39:Priscilla Rai, NERY) Contraction Comments: no contractions noted or palpated. Patient denies contractions. (11/29/2016 14:39:Priscilla Rai, ) NEURO Level of Consciousness: Fully Conscious (11/29/2016 14:30:Priscilla Rai RN) DTR's/Clonus: DTRs 2+; No Clonus (11/29/2016 14:30:Priscilla Rai RN) Headache: Denies (11/29/2016 14:30:Priscilla Rai RN) Dizziness: No (11/29/2016 14:30:Priscilla Rai RN) Blurred Vision: Yes (11/29/2016 14:30:Priscilla Rai RN) Extremity Numbness/Tingling : None (11/29/2016 14:30:Priscilla Rai RN) Extremity Movement: Full Range of Motion (11/29/2016 14:30:Priscilla Rai RN) CARDIOVASCULAR Heart Rhythm: Regular (11/29/2016 14:30:Priscilla Rai RN) Nailbeds: [place] (11/29/2016 14:30:Priscilla Rai RN) Capillary Refill: Less than 3 Seconds (11/29/2016 14:30:Priscilla Rai RN) Lower Extremities Edema: None (11/29/2016 14:30:Priscilla Rai RN) Lower Extremities Edema Degree: None (11/29/2016 14:30:Priscilla Rai RN) Upper Extremities Edema: None (11/29/2016 14:30:Priscilla Rai RN) Upper Extremities Edema Degree: None (11/29/2016 14:30:Priscilla Rai RN) Facial Edema: None (11/29/2016 14:30:Priscilla Rai RN) Cherie's Sign Left Leg: Negative (11/29/2016 14:30:Priscilla Rai RN) Cherie's Sign Right Leg: Negative (11/29/2016 14:30:Priscilla Rai RN) DVT RISK ASSESSMENT DVT Risk Age: Age less than 41 years (11/29/2016 14:30:Priscilla Rai RN) DVT Risk BMI: BMI<31 (11/29/2016 14:30:Priscilla Rai RN) DVT Risk Surgery: Laparoscopic Surgery (>60 minutes) (11/29/2016 14:30:Priscilla Rai RN) DVT Risk Other: Women Only- or (<1 month) (11/29/2016 14:30:Priscilla Rai RN) DVT Risk Total: 3 (11/29/2016 14:30:QS system process) DVT Risk Text: High Risk (20-40%)- Consider stockings, compresssion device, pharmacological therapy per hospital policy (11/29/2016 14:30:QS system process) RESPIRATORY Respiratory Effort: Unlabored; Regular Rhythm (11/29/2016 14:30:Priscilla Rai RN) Breath Sounds, Left: Clear and Equal (11/29/2016 14:30:Priscilla Rai RN) Breath Sounds, Right: Clear and Equal (11/29/2016 14:30:Priscilla Rai RN) Cough Productivity: None (11/29/2016 14:30:Priscilla Rai, NERY) GASTROINTESTINAL Nausea/Vomiting: Denies (11/29/2016 14:30:Priscilla Rai RN) Bowel Sounds: Normoactive; All Quadrants (11/29/2016 14:30:Priscilla Rai RN) RUQ Epigastric Pain: Denies (11/29/2016 14:30:Priscilla Rai RN) Bowel Patterns: Soft, Formed Stool (11/29/2016 14:30:Priscilla Rai RN) Hemorrhoids: None (11/29/2016 14:30:Priscilla Rai RN) Diet Type: Regular diet (11/29/2016 14:30:Priscilla Rai RN) Last Meal: 11/29/2016 10:45 (11/29/2016 14:30:Priscilla Rai RN) GENITOURINARY Bladder: Nondistended (11/29/2016 14:30:Priscilla Rai, NERY) Frequency of Urination: No (11/29/2016 14:30:Priscilla Rai, RN) Urination Burning: No (11/29/2016 14:30:Priscilla Rai, NERY) CVA Tenderness: No (11/29/2016 14:30:Priscilla Rai RN) Vaginal Bleeding: None (11/29/2016 14:30:Priscilla Rai, RN) Vaginal Discharge Amount: None (11/29/2016 14:30:Priscilla Rai, RN) Vaginal Discharge Color: N/A (11/29/2016 14:30:Priscilla Rai, NERY) Vaginal Discharge Character: None (11/29/2016 14:30:Priscilla Rai, NERY) INTEGUMENTARY Skin Color: Normal for Race (11/29/2016 14:30:Priscilla Rai, NERY) Skin Temperature: Warm (11/29/2016 14:30:Priscilla Rai, RN) Skin Moisture: Dry (11/29/2016 14:30:Priscillazulma Rai, ) [facility] SKIN ASSESSMENT Vinod Scale Sensory Perception: No Impairment- Responds to verbal commands. Has no sensory deficit which would limit ability to feel or voice pain or discomfort (11/29/2016 14:30:Priscilla Rai RN) Vinod Scale Moisture: Rarely Moist- Skin is usually dry. Linen only requires changing at routine intervals (11/29/2016 14:30:Priscilla Rai RN) Vinod Scale Activity: Walks Frequently- Walks outside the room at least twice a day and inside room at least every 2 hours during the day. (11/29/2016 14:30:Priscilla Rai RN) Vinod Scale Mobility: No Limitations- Makes major and frequent changes in position without assistance (11/29/2016 14:30:Priscilla Rai RN) Vinod Scale Nutrition: Excellent- Eats most of every meal. Never refuses a meal. Usually eats a total of 4 or more servings of meat and dairy products. Occasionally eats between meals. Does not require supplementation (11/29/2016 14:30:Priscilla Rai RN) Vinod Scale Friction and Shear: No Apparent Problem- Moves in bed and in chair independently and has sufficient muscle strength to lift up completely during move. Maintains good position in bed or chair at all times (11/29/2016 14:30:Priscilla Rai RN) Vinod Scale Total: 23 (11/29/2016 14:30:QS system process) Vinod Scale Risk: No Risk of Pressure Ulcer Noted at this Time (11/29/2016 14:30:QS system process) SUPPORT Emotional State: Calm/Relaxed (11/29/2016 14:30:Priscilla Rai RN) SAFETY Call [place] Within Reach: Yes (11/29/2016 14:30:Priscilla Rai RN) Side Rails Up: Yes (11/29/2016 14:30:Priscilla Rai RN) Bed Wheels Locked: Yes (11/29/2016 14:30:Priscilla Rai RN) Arm Bands Present: Yes (11/29/2016 14:30:Priscilla Rai RN) Isolation: [place] (11/29/2016 14:30:Priscilla Rai RN) FALL SCREEN Fall Risk History of Falling: (0) No (11/29/2016 14:30:Priscilla Rai RN) Fall Risk Secondary Diagnosis: (0) No (11/29/2016 14:30:Priscilla Rai RN) Fall Risk Ambulatory Aid: (0) None/Bedrest/Wheelchair/Nurse Assist (11/29/2016 14:30:Priscilla Rai RN) Fall Risk IV Therapy: (0) No (11/29/2016 14:30:Priscilla Rai RN) Fall Risk Gait: (0) Normal/Bedrest/Immobile (11/29/2016 14:30:Priscilla Rai RN) Fall Risk Mental Status: (0) Oriented to Own Ability (11/29/2016 14:30:Priscilla Rai RN) Fall Risk Score: 0 (11/29/2016 14:30:QS system process) Fall Risk Score Definition: No Risk: No action required (11/29/2016 14:30:QS system process) RECENT TRAVEL/INFECTIOUS DISEASE Recent Exp Communicable Disease: No (11/29/2016 14:30:Priscilla Rai RN) Cough or Fever: No (11/29/2016 14:30:Priscilla Rai RN) Foreign Travel Past 10 Days: No (11/29/2016 14:30:Priscilla Rai RN) Open Wounds or Sores: No (11/29/2016 14:30:Priscilla Rai RN) Prior Antibiotic Resistance Tx: No (11/29/2016 14:30:Priscilla Rai RN) Cultures Obtained: Not Applicable (11/29/2016 14:30:Priscilla Rai RN) Isolation Initiated: No (11/29/2016 14:30:Priscilla Rai RN) Pt/Family Education: Not Applicable (11/29/2016 14:30:Priscilla Rai RN) BABY A FHR Baseline Rate (bpm) Baby A: 145 (11/29/2016 14:39:Priscilla Rai RN)
--- NOTE | 2016-11-30 10:45 | Antepartum Discharge Summary ---
Antepartum DC Datetime Report Generated by CPN: 11/30/2016 10:45 DIET/ACTIVITY/RESTRICTIONS Diet: Regular (11/29/2016 14:44:Priscilla Rai, RN) Activity: Normal Activity (11/29/2016 14:44:Priscilla Rai, RN) TEACHING/INSTRUCTIONS/REFERRALS Instructions Given To: patient (11/29/2016 14:44:Priscilla Rai, RN) Instructions Understood: Patient Verbalized Understanding; Support Person Verbalized Understanding (11/29/2016 14:44:Priscilla Rai RN) Referrals: None (11/29/2016 14:44:Priscilla Rai RN) DISCHARGE INFORMATION Discharged AMA: No (11/29/2016 14:44:Priscilla Rai RN) Discharge Date/Time: 11/29/2016 14:44 (11/29/2016 14:44:Priscilla Rai RN) Discharged To: Other (11/29/2016 14:44:Priscilla Rai RN) Discharge Provider Name: Dr. Rutherford (11/29/2016 14:44:Priscilla Rai RN) Accompanied By: TOBACCO GRADER (11/29/2016 14:44:Priscilla Rai RN) Discharge Method: Wheelchair (11/29/2016 14:44:Priscilla Rai RN) Condition: Stable (11/29/2016 14:44:Priscilla Rai RN) FOLLOW UP INFORMATION Follow Up With: [facility] (11/29/2016 14:44:Priscilla Rai RN) Follow Up On: As Scheduled (11/29/2016 14:44:Priscilla Rai RN) Follow Up Phone Number: [facility] - (11/29/2016 14:44:Priscilla Rai RN) Comments: Patient discharged to ER for further eval of non-OB complaint of left sided numbness and left arm weakness, blurry vision, and photophobia. (11/29/2016 14:44:Priscilla Rai RN) GENERAL INSTR-CALL PROVIDER IF: Contractions: Contractions or cramps become more frequent than 8 in one hour or 4 in 20 minutes; Regular painful contractions every 5 minutes or less for one hour. Time your contractions from the beginning of one to the beginning of the next (11/29/2016 14:44:Priscilla Rai RN) Pressure: Pressure in your vagina or lower abdomen that may feel like the baby is pushing down (11/29/2016 14:44:Priscilla Rai RN) Period Like Cramps: Period-like cramps or low dull backache that may come and go (11/29/2016 14:44:Priscilla Rai RN) Cramps/Diarrhea: Abdominal cramps that may be accompanied by diarrhea (11/29/2016 14:44:Priscilla Rai RN) Gush of Fluid/Blood: Gush of fluid or blood from your vagina (it is normal to have spotting after vaginal exam or intercourse) (11/29/2016 14:44:Priscilla Rai RN) Vaginal Discharge: Change in the type or amount of vaginal discharge (11/29/2016 14:44:Priscilla Rai RN) Decreased Movement: Your baby is not moving as much as usual- 4 movements in 1 hour after drinking and resting on side (11/29/2016 14:44:Priscilla Rai RN) Temperature: Temperature greater than 100.0(F) orally (11/29/2016 14:44:Priscilla Rai RN) Hypertension Signs/Symptoms: Severe headache which is not relieved 30 minutes after taking Tylenol(Acetaminophen); Blurry vision or spots before your eyes; Severe heartburn or pain on the upper right side of your abdomen that is not relieved by an antacid; Increased swelling in your face, hands or feet (11/29/2016 14:44:Priscilla Rai RN) Urinary Output: Decreased urinary output or dark colored urine (11/29/2016 14:44:Priscilla Rai RN)
--- NOTE | 2016-11-30 10:45 | L&D General Admission ---
General Admit Datetime Report Generated by CPN: 11/30/2016 10:45 INFORMATION Patient Age: 21 (01/29/2016 16:20:QS system process) EDC: 03/06/2017 00:00 (11/29/2016 14:34:Priscilla Rai RN) : 6 (11/29/2016 14:34:Priscilla Rai RN) [place] (11/29/2016 14:34:Priscilla Rai RN) Baby, Number in Womb: 1 (11/29/2016 14:34:Priscilla Rai RN) CARE Primary Assistant Professor Of Communication: [facility] (11/29/2016 14:34:Priscilla Rai RN) Adequate Care: Yes (11/29/2016 14:34:Priscilla Rai RN) Height (in): 65 (11/29/2016 14:26:QS system process) ALLERGIES Medication Allergy: Yes (11/29/2016 14:34:Priscilla Rai RN) Medication Allergies: nitrofurantoin macrocrystalline/MO/Generalized angel (11/29/2016); nitrofurantoin/MO/Generalized angel (11/29/2016) (11/29/2016 14:26:QS system process) Medication Allergies: nitrofurantoin macrocrystalline/MO/Generalized angel (10/26/2015); nitrofurantoin/MO/Generalized angel (10/26/2015) (06/17/2016 07:17:QS system process) Medication Allergies: nitrofurantoin macrocrystal/MO/Generalized angel (10/26/2015); nitrofurantoin/MO/Generalized angel (10/26/2015) (01/29/2016 16:20:QS system process) Latex Allergy: No Latex Allergies (11/29/2016 14:34:Priscilla Rai RN) Food Allergies: denies (11/29/2016 14:34:Priscilla Rai RN) Environmental Allergies: denies (11/29/2016 14:34:Priscilla Rai RN) COMMUNICATION Primary Language: Albanian (11/29/2016 14:34:Priscilla Rai RN) Communication Barrier(s): None (11/29/2016 14:34:Priscilla Rai RN) DEMOGRAPHICS Address: [address] [place] [id number] (11/29/2016 14:08:QS system process) Address: [address] [address] (01/29/2016 16:20:QS system process) Zipcode: [phone] (01/29/2016 16:20:QS system process) Home (01/29/2016 16:20:QS system process) Work (11/29/2016 14:08:QS system process) SSN: [id number] (01/29/2016 16:20:QS system process) Next of Kin Name: KARIE ABDALLA (01/29/2016 16:20:QS system process) Next of Kin (01/29/2016 16:20:QS system process) Next of Kin Relationship: MO (01/29/2016 16:20:QS system process) Date of : 1995 (01/29/2016 16:20:QS system process) Marital Status: Single (01/29/2016 16:20:QS system process) Sex: Female (01/29/2016 16:20:QS system process) Race: (01/29/2016 16:20:QS system process) Ethnicity: Non- or (01/29/2016 16:20:QS system process) Sikhism: None (11/29/2016 14:08:QS system process) Sikhism: Other (01/29/2016 16:20:QS system process) DRUG AND ALCOHOL USE Alcohol: No (11/29/2016 14:34:Priscilla Rai RN) Cigarettes: Never Smoker. [id number] (11/29/2016 14:34:Priscilla Rai RN) Marijuana: No (11/29/2016 14:34:Priscilla Rai RN) Cocaine: No (11/29/2016 14:34:Priscilla Rai RN) Other Illicit Drugs: No (11/29/2016 14:34:Priscilla Rai RN) LIVING SITUATION/DISCHARGE PLAN Car Seat for Discharge: Yes (11/29/2016 14:34:Priscilla Rai RN) Adoption Requested: No (11/29/2016 14:34:Priscilla Rai RN) Pt Contact w/ Post : N/A (11/29/2016 14:34:Priscilla Rai RN) LABS Hemoglobin: 12.0 (08/06/2016 17:55:QS system process) Hematocrit: 36.1 (08/06/2016 17:55:QS system process) MCV: 81 (08/06/2016 17:55:QS system process)
--- NOTE | 2016-11-30 10:45 | L&D Current Admission ---
Current Admit Datetime Report Generated by CPN: 11/30/2016 10:45 ADMISSION INFORMATION Chief Complaint: Other (Annotations: photophobia, blurry vision, left sided numbness and left arm weakness. ) (11/29/2016 14:30:Prisiclla Rai RN)
--- NOTE | 2016-11-30 16:45 | L&D Discharge Summary ---
OB Discharge Summary Datetime Report Generated by CPN: 11/30/2016 16:45 DISCHARGE DIAGNOSIS Diagnosis/Symptoms: Other Diagnoses/Symptoms Other: not in labor, no OB complaints. Sen tback to ER for eval of left sided numbness and left arm weakness. Gestation: 26.1 Number of Babies in Womb: 1 DIET/ACTIVITY/RESTRICTIONS Diet: Regular Activity: Normal Activity TEACHING/INSTRUCTIONS/REFERRALS Instructions Given To: patient Instructions Understood: Patient Verbalized Understanding; Support Person Verbalized Understanding Referrals: None DISCHARGE INFORMATION Discharged AMA: No Discharge Date/Time: 11/29/2016 14:44 Discharged To: Other Discharge Provider Name: Dr. Rutherford Accompanied By: SWIMMING COACH Discharge Method: Wheelchair Condition: Stable FOLLOW UP INFORMATION Follow Up With: [facility] Follow Up On: As Scheduled Follow Up Phone Number: [facility] - Comments: Patient discharged to ER for further eval of non-OB complaint of left sided numbness and left arm weakness, blurry vision, and photophobia. GENERAL INSTR-CALL PROVIDER IF: Contractions: Contractions or cramps become more frequent than 8 in one hour or 4 in 20 minutes; Regular painful contractions every 5 minutes or less for one hour. Time your contractions from the beginning of one to the beginning of the next Pressure: Pressure in your vagina or lower abdomen that may feel like the baby is pushing down Period Like Cramps: Period-like cramps or low dull backache that may come and go Cramps/Diarrhea: Abdominal cramps that may be accompanied by diarrhea Gush of Fluid/Blood: Gush of fluid or blood from your vagina (it is normal to have spotting after vaginal exam or intercourse) Vaginal Discharge: Change in the type or amount of vaginal discharge Decreased Movement: Your baby is not moving as much as usual- 4 movements in 1 hour after drinking and resting on side Temperature: Temperature greater than 100.0(F) orally
--- NOTE | 2016-11-30 22:45 | L&D Discharge Summary ---
OB Discharge Summary Datetime Report Generated by CPN: 11/30/2016 22:45 DISCHARGE DIAGNOSIS Diagnosis/Symptoms: Other Diagnoses/Symptoms Other: not in labor, no OB complaints. Sen tback to ER for eval of left sided numbness and left arm weakness. Gestation: 26.1 Number of Babies in Womb: 1 DIET/ACTIVITY/RESTRICTIONS Diet: Regular Activity: Normal Activity TEACHING/INSTRUCTIONS/REFERRALS Instructions Given To: patient Instructions Understood: Patient Verbalized Understanding; Support Person Verbalized Understanding Referrals: None DISCHARGE INFORMATION Discharged AMA: No Discharge Date/Time: 11/29/2016 14:44 Discharged To: Other Discharge Provider Name: Dr. Rutherford Accompanied By: TOY DEPARTMENT MANAGER Discharge Method: Wheelchair Condition: Stable FOLLOW UP INFORMATION Follow Up With: [facility] Follow Up On: As Scheduled Follow Up Phone Number: [facility] - Comments: Patient discharged to ER for further eval of non-OB complaint of left sided numbness and left arm weakness, blurry vision, and photophobia. GENERAL INSTR-CALL PROVIDER IF: Contractions: Contractions or cramps become more frequent than 8 in one hour or 4 in 20 minutes; Regular painful contractions every 5 minutes or less for one hour. Time your contractions from the beginning of one to the beginning of the next Pressure: Pressure in your vagina or lower abdomen that may feel like the baby is pushing down Period Like Cramps: Period-like cramps or low dull backache that may come and go Cramps/Diarrhea: Abdominal cramps that may be accompanied by diarrhea Gush of Fluid/Blood: Gush of fluid or blood from your vagina (it is normal to have spotting after vaginal exam or intercourse) Vaginal Discharge: Change in the type or amount of vaginal discharge Decreased Movement: Your baby is not moving as much as usual- 4 movements in 1 hour after drinking and resting on side Temperature: Temperature greater than 100.0(F) orally
--- NOTE | 2016-12-01 04:45 | L&D Discharge Summary ---
OB Discharge Summary Datetime Report Generated by CPN: 12/01/2016 04:45 DISCHARGE DIAGNOSIS Diagnosis/Symptoms: Other Diagnoses/Symptoms Other: not in labor, no OB complaints. Sen tback to ER for eval of left sided numbness and left arm weakness. Gestation: 26.1 Number of Babies in Womb: 1 DIET/ACTIVITY/RESTRICTIONS Diet: Regular Activity: Normal Activity TEACHING/INSTRUCTIONS/REFERRALS Instructions Given To: patient Instructions Understood: Patient Verbalized Understanding; Support Person Verbalized Understanding Referrals: None DISCHARGE INFORMATION Discharged AMA: No Discharge Date/Time: 11/29/2016 14:44 Discharged To: Other Discharge Provider Name: Dr. Rutherford Accompanied By: CASINO GAMES DEALER Discharge Method: Wheelchair Condition: Stable FOLLOW UP INFORMATION Follow Up With: [facility] Follow Up On: As Scheduled Follow Up Phone Number: [phone] - Comments: Patient discharged to ER for further eval of non-OB complaint of left sided numbness and left arm weakness, blurry vision, and photophobia. GENERAL INSTR-CALL PROVIDER IF: Contractions: Contractions or cramps become more frequent than 8 in one hour or 4 in 20 minutes; Regular painful contractions every 5 minutes or less for one hour. Time your contractions from the beginning of one to the beginning of the next Pressure: Pressure in your vagina or lower abdomen that may feel like the baby is pushing down Period Like Cramps: Period-like cramps or low dull backache that may come and go Cramps/Diarrhea: Abdominal cramps that may be accompanied by diarrhea Gush of Fluid/Blood: Gush of fluid or blood from your vagina (it is normal to have spotting after vaginal exam or intercourse) Vaginal Discharge: Change in the type or amount of vaginal discharge Decreased Movement: Your baby is not moving as much as usual- 4 movements in 1 hour after drinking and resting on side Temperature: Temperature greater than 100.0(F) orally
--- NOTE | 2016-12-01 10:45 | L&D Discharge Summary ---
OB Discharge Summary Datetime Report Generated by CPN: 12/01/2016 10:45 DISCHARGE DIAGNOSIS Diagnosis/Symptoms: Other Diagnoses/Symptoms Other: not in labor, no OB complaints. Sen tback to ER for eval of left sided numbness and left arm weakness. Gestation: 26.1 Number of Babies in Womb: 1 DIET/ACTIVITY/RESTRICTIONS Diet: Regular Activity: Normal Activity TEACHING/INSTRUCTIONS/REFERRALS Instructions Given To: patient Instructions Understood: Patient Verbalized Understanding; Support Person Verbalized Understanding Referrals: None DISCHARGE INFORMATION Discharged AMA: No Discharge Date/Time: 11/29/2016 14:44 Discharged To: Other Discharge Provider Name: Dr. Rutherford Accompanied By: UPHOLSTERY CUTTER Discharge Method: Wheelchair Condition: Stable FOLLOW UP INFORMATION Follow Up With: [facility] Follow Up On: As Scheduled Follow Up Phone Number: [facility] - Comments: Patient discharged to ER for further eval of non-OB complaint of left sided numbness and left arm weakness, blurry vision, and photophobia. GENERAL INSTR-CALL PROVIDER IF: Contractions: Contractions or cramps become more frequent than 8 in one hour or 4 in 20 minutes; Regular painful contractions every 5 minutes or less for one hour. Time your contractions from the beginning of one to the beginning of the next Pressure: Pressure in your vagina or lower abdomen that may feel like the baby is pushing down Period Like Cramps: Period-like cramps or low dull backache that may come and go Cramps/Diarrhea: Abdominal cramps that may be accompanied by diarrhea Gush of Fluid/Blood: Gush of fluid or blood from your vagina (it is normal to have spotting after vaginal exam or intercourse) Vaginal Discharge: Change in the type or amount of vaginal discharge Decreased Movement: Your baby is not moving as much as usual- 4 movements in 1 hour after drinking and resting on side Temperature: Temperature greater than 100.0(F) orally
--- NOTE | 2016-12-01 16:45 | L&D Discharge Summary ---
OB Discharge Summary Datetime Report Generated by CPN: 12/01/2016 16:45 DISCHARGE DIAGNOSIS Diagnosis/Symptoms: Other Diagnoses/Symptoms Other: not in labor, no OB complaints. Sen tback to ER for eval of left sided numbness and left arm weakness. Gestation: 26.1 Number of Babies in Womb: 1 DIET/ACTIVITY/RESTRICTIONS Diet: Regular Activity: Normal Activity TEACHING/INSTRUCTIONS/REFERRALS Instructions Given To: patient Instructions Understood: Patient Verbalized Understanding; Support Person Verbalized Understanding Referrals: None DISCHARGE INFORMATION Discharged AMA: No Discharge Date/Time: 11/29/2016 14:44 Discharged To: Other Discharge Provider Name: Dr. Rutherford Accompanied By: CIRCULAR KNIFE MACHINE CUTTER Discharge Method: Wheelchair Condition: Stable FOLLOW UP INFORMATION Follow Up With: [facility] Follow Up On: As Scheduled Follow Up Phone Number: [facility] - Comments: Patient discharged to ER for further eval of non-OB complaint of left sided numbness and left arm weakness, blurry vision, and photophobia. GENERAL INSTR-CALL PROVIDER IF: Contractions: Contractions or cramps become more frequent than 8 in one hour or 4 in 20 minutes; Regular painful contractions every 5 minutes or less for one hour. Time your contractions from the beginning of one to the beginning of the next Pressure: Pressure in your vagina or lower abdomen that may feel like the baby is pushing down Period Like Cramps: Period-like cramps or low dull backache that may come and go Cramps/Diarrhea: Abdominal cramps that may be accompanied by diarrhea Gush of Fluid/Blood: Gush of fluid or blood from your vagina (it is normal to have spotting after vaginal exam or intercourse) Vaginal Discharge: Change in the type or amount of vaginal discharge Decreased Movement: Your baby is not moving as much as usual- 4 movements in 1 hour after drinking and resting on side Temperature: Temperature greater than 100.0(F) orally
--- NOTE | 2016-12-01 22:45 | L&D Discharge Summary ---
OB Discharge Summary Datetime Report Generated by CPN: 12/01/2016 22:45 DISCHARGE DIAGNOSIS Diagnosis/Symptoms: Other Diagnoses/Symptoms Other: not in labor, no OB complaints. Sen tback to ER for eval of left sided numbness and left arm weakness. Gestation: 26.1 Number of Babies in Womb: 1 DIET/ACTIVITY/RESTRICTIONS Diet: Regular Activity: Normal Activity TEACHING/INSTRUCTIONS/REFERRALS Instructions Given To: patient Instructions Understood: Patient Verbalized Understanding; Support Person Verbalized Understanding Referrals: None DISCHARGE INFORMATION Discharged AMA: No Discharge Date/Time: 11/29/2016 14:44 Discharged To: Other Discharge Provider Name: Dr. Rutherford Accompanied By: KICK PRESS SETTER Discharge Method: Wheelchair Condition: Stable FOLLOW UP INFORMATION Follow Up With: [facility] Follow Up On: As Scheduled Follow Up Phone Number: [facility] - Comments: Patient discharged to ER for further eval of non-OB complaint of left sided numbness and left arm weakness, blurry vision, and photophobia. GENERAL INSTR-CALL PROVIDER IF: Contractions: Contractions or cramps become more frequent than 8 in one hour or 4 in 20 minutes; Regular painful contractions every 5 minutes or less for one hour. Time your contractions from the beginning of one to the beginning of the next Pressure: Pressure in your vagina or lower abdomen that may feel like the baby is pushing down Period Like Cramps: Period-like cramps or low dull backache that may come and go Cramps/Diarrhea: Abdominal cramps that may be accompanied by diarrhea Gush of Fluid/Blood: Gush of fluid or blood from your vagina (it is normal to have spotting after vaginal exam or intercourse) Vaginal Discharge: Change in the type or amount of vaginal discharge Decreased Movement: Your baby is not moving as much as usual- 4 movements in 1 hour after drinking and resting on side Temperature: Temperature greater than 100.0(F) orally
--- NOTE | 2016-12-02 04:45 | L&D Discharge Summary ---
OB Discharge Summary Datetime Report Generated by CPN: 12/02/2016 04:45 DISCHARGE DIAGNOSIS Diagnosis/Symptoms: Other Diagnoses/Symptoms Other: not in labor, no OB complaints. Sen tback to ER for eval of left sided numbness and left arm weakness. Gestation: 26.1 Number of Babies in Womb: 1 DIET/ACTIVITY/RESTRICTIONS Diet: Regular Activity: Normal Activity TEACHING/INSTRUCTIONS/REFERRALS Instructions Given To: patient Instructions Understood: Patient Verbalized Understanding; Support Person Verbalized Understanding Referrals: None DISCHARGE INFORMATION Discharged AMA: No Discharge Date/Time: 11/29/2016 14:44 Discharged To: Other Discharge Provider Name: Dr. Rutherford Accompanied By: FITTING SUPERVISOR Discharge Method: Wheelchair Condition: Stable FOLLOW UP INFORMATION Follow Up With: [facility] Follow Up On: As Scheduled Follow Up Phone Number: [facility] - Comments: Patient discharged to ER for further eval of non-OB complaint of left sided numbness and left arm weakness, blurry vision, and photophobia. GENERAL INSTR-CALL PROVIDER IF: Contractions: Contractions or cramps become more frequent than 8 in one hour or 4 in 20 minutes; Regular painful contractions every 5 minutes or less for one hour. Time your contractions from the beginning of one to the beginning of the next Pressure: Pressure in your vagina or lower abdomen that may feel like the baby is pushing down Period Like Cramps: Period-like cramps or low dull backache that may come and go Cramps/Diarrhea: Abdominal cramps that may be accompanied by diarrhea Gush of Fluid/Blood: Gush of fluid or blood from your vagina (it is normal to have spotting after vaginal exam or intercourse) Vaginal Discharge: Change in the type or amount of vaginal discharge Decreased Movement: Your baby is not moving as much as usual- 4 movements in 1 hour after drinking and resting on side Temperature: Temperature greater than 100.0(F) orally
--- NOTE | 2016-12-02 10:46 | L&D Discharge Summary ---
OB Discharge Summary Datetime Report Generated by CPN: 12/02/2016 10:45 DISCHARGE DIAGNOSIS Diagnosis/Symptoms: Other Diagnoses/Symptoms Other: not in labor, no OB complaints. Sen tback to ER for eval of left sided numbness and left arm weakness. Gestation: 26.1 Number of Babies in Womb: 1 DIET/ACTIVITY/RESTRICTIONS Diet: Regular Activity: Normal Activity TEACHING/INSTRUCTIONS/REFERRALS Instructions Given To: patient Instructions Understood: Patient Verbalized Understanding; Support Person Verbalized Understanding Referrals: None DISCHARGE INFORMATION Discharged AMA: No Discharge Date/Time: 11/29/2016 14:44 Discharged To: Other Discharge Provider Name: Dr. Rutherford Accompanied By: CLAY PROCESSING FACTORY WORKER Discharge Method: Wheelchair Condition: Stable FOLLOW UP INFORMATION Follow Up With: [facility] Follow Up On: As Scheduled Follow Up Phone Number: [facility] - Comments: Patient discharged to ER for further eval of non-OB complaint of left sided numbness and left arm weakness, blurry vision, and photophobia. GENERAL INSTR-CALL PROVIDER IF: Contractions: Contractions or cramps become more frequent than 8 in one hour or 4 in 20 minutes; Regular painful contractions every 5 minutes or less for one hour. Time your contractions from the beginning of one to the beginning of the next Pressure: Pressure in your vagina or lower abdomen that may feel like the baby is pushing down Period Like Cramps: Period-like cramps or low dull backache that may come and go Cramps/Diarrhea: Abdominal cramps that may be accompanied by diarrhea Gush of Fluid/Blood: Gush of fluid or blood from your vagina (it is normal to have spotting after vaginal exam or intercourse) Vaginal Discharge: Change in the type or amount of vaginal discharge Decreased Movement: Your baby is not moving as much as usual- 4 movements in 1 hour after drinking and resting on side Temperature: Temperature greater than 100.0(F) orally
--- NOTE | 2016-12-02 16:45 | L&D Discharge Summary ---
OB Discharge Summary Datetime Report Generated by CPN: 12/02/2016 16:45 DISCHARGE DIAGNOSIS Diagnosis/Symptoms: Other Diagnoses/Symptoms Other: not in labor, no OB complaints. Sen tback to ER for eval of left sided numbness and left arm weakness. Gestation: 26.1 Number of Babies in Womb: 1 DIET/ACTIVITY/RESTRICTIONS Diet: Regular Activity: Normal Activity TEACHING/INSTRUCTIONS/REFERRALS Instructions Given To: patient Instructions Understood: Patient Verbalized Understanding; Support Person Verbalized Understanding Referrals: None DISCHARGE INFORMATION Discharged AMA: No Discharge Date/Time: 11/29/2016 14:44 Discharged To: Other Discharge Provider Name: Dr. Rutherford Accompanied By: AIR CONDITIONING MECHANIC INDUSTRIAL Discharge Method: Wheelchair Condition: Stable FOLLOW UP INFORMATION Follow Up With: [facility] Follow Up On: As Scheduled Follow Up Phone Number: [facility] - Comments: Patient discharged to ER for further eval of non-OB complaint of left sided numbness and left arm weakness, blurry vision, and photophobia. GENERAL INSTR-CALL PROVIDER IF: Contractions: Contractions or cramps become more frequent than 8 in one hour or 4 in 20 minutes; Regular painful contractions every 5 minutes or less for one hour. Time your contractions from the beginning of one to the beginning of the next Pressure: Pressure in your vagina or lower abdomen that may feel like the baby is pushing down Period Like Cramps: Period-like cramps or low dull backache that may come and go Cramps/Diarrhea: Abdominal cramps that may be accompanied by diarrhea Gush of Fluid/Blood: Gush of fluid or blood from your vagina (it is normal to have spotting after vaginal exam or intercourse) Vaginal Discharge: Change in the type or amount of vaginal discharge Decreased Movement: Your baby is not moving as much as usual- 4 movements in 1 hour after drinking and resting on side Temperature: Temperature greater than 100.0(F) orally
--- NOTE | 2016-12-02 22:45 | L&D Discharge Summary ---
OB Discharge Summary Datetime Report Generated by CPN: 12/02/2016 22:45 DISCHARGE DIAGNOSIS Diagnosis/Symptoms: Other Diagnoses/Symptoms Other: not in labor, no OB complaints. Sen tback to ER for eval of left sided numbness and left arm weakness. Gestation: 26.1 Number of Babies in Womb: 1 DIET/ACTIVITY/RESTRICTIONS Diet: Regular Activity: Normal Activity TEACHING/INSTRUCTIONS/REFERRALS Instructions Given To: patient Instructions Understood: Patient Verbalized Understanding; Support Person Verbalized Understanding Referrals: None DISCHARGE INFORMATION Discharged AMA: No Discharge Date/Time: 11/29/2016 14:44 Discharged To: Other Discharge Provider Name: Dr. Rutherford Accompanied By: COMPUTER COMPOSITOR Discharge Method: Wheelchair Condition: Stable FOLLOW UP INFORMATION Follow Up With: [facility] Follow Up On: As Scheduled Follow Up Phone Number: [facility] - Comments: Patient discharged to ER for further eval of non-OB complaint of left sided numbness and left arm weakness, blurry vision, and photophobia. GENERAL INSTR-CALL PROVIDER IF: Contractions: Contractions or cramps become more frequent than 8 in one hour or 4 in 20 minutes; Regular painful contractions every 5 minutes or less for one hour. Time your contractions from the beginning of one to the beginning of the next Pressure: Pressure in your vagina or lower abdomen that may feel like the baby is pushing down Period Like Cramps: Period-like cramps or low dull backache that may come and go Cramps/Diarrhea: Abdominal cramps that may be accompanied by diarrhea Gush of Fluid/Blood: Gush of fluid or blood from your vagina (it is normal to have spotting after vaginal exam or intercourse) Vaginal Discharge: Change in the type or amount of vaginal discharge Decreased Movement: Your baby is not moving as much as usual- 4 movements in 1 hour after drinking and resting on side Temperature: Temperature greater than 100.0(F) orally
--- NOTE | 2016-12-03 04:46 | L&D Discharge Summary ---
OB Discharge Summary Datetime Report Generated by CPN: 12/03/2016 04:45 DISCHARGE DIAGNOSIS Diagnosis/Symptoms: Other Diagnoses/Symptoms Other: not in labor, no OB complaints. Sen tback to ER for eval of left sided numbness and left arm weakness. Gestation: 26.1 Number of Babies in Womb: 1 DIET/ACTIVITY/RESTRICTIONS Diet: Regular Activity: Normal Activity TEACHING/INSTRUCTIONS/REFERRALS Instructions Given To: patient Instructions Understood: Patient Verbalized Understanding; Support Person Verbalized Understanding Referrals: None DISCHARGE INFORMATION Discharged AMA: No Discharge Date/Time: 11/29/2016 14:44 Discharged To: Other Discharge Provider Name: Dr. Rutherford Accompanied By: SPINNING LATHE OPERATOR Discharge Method: Wheelchair Condition: Stable FOLLOW UP INFORMATION Follow Up With: [facility] Follow Up On: As Scheduled Follow Up Phone Number: [facility] - Comments: Patient discharged to ER for further eval of non-OB complaint of left sided numbness and left arm weakness, blurry vision, and photophobia. GENERAL INSTR-CALL PROVIDER IF: Contractions: Contractions or cramps become more frequent than 8 in one hour or 4 in 20 minutes; Regular painful contractions every 5 minutes or less for one hour. Time your contractions from the beginning of one to the beginning of the next Pressure: Pressure in your vagina or lower abdomen that may feel like the baby is pushing down Period Like Cramps: Period-like cramps or low dull backache that may come and go Cramps/Diarrhea: Abdominal cramps that may be accompanied by diarrhea Gush of Fluid/Blood: Gush of fluid or blood from your vagina (it is normal to have spotting after vaginal exam or intercourse) Vaginal Discharge: Change in the type or amount of vaginal discharge Decreased Movement: Your baby is not moving as much as usual- 4 movements in 1 hour after drinking and resting on side Temperature: Temperature greater than 100.0(F) orally
--- NOTE | 2016-12-03 10:46 | L&D Discharge Summary ---
OB Discharge Summary Datetime Report Generated by CPN: 12/03/2016 10:45 DISCHARGE DIAGNOSIS Diagnosis/Symptoms: Other Diagnoses/Symptoms Other: not in labor, no OB complaints. Sen tback to ER for eval of left sided numbness and left arm weakness. Gestation: 26.1 Number of Babies in Womb: 1 DIET/ACTIVITY/RESTRICTIONS Diet: Regular Activity: Normal Activity TEACHING/INSTRUCTIONS/REFERRALS Instructions Given To: patient Instructions Understood: Patient Verbalized Understanding; Support Person Verbalized Understanding Referrals: None DISCHARGE INFORMATION Discharged AMA: No Discharge Date/Time: 11/29/2016 14:44 Discharged To: Other Discharge Provider Name: Dr. Rutherford Accompanied By: MARKER HAND Discharge Method: Wheelchair Condition: Stable FOLLOW UP INFORMATION Follow Up With: [facility] Follow Up On: As Scheduled Follow Up Phone Number: [facility] - Comments: Patient discharged to ER for further eval of non-OB complaint of left sided numbness and left arm weakness, blurry vision, and photophobia. GENERAL INSTR-CALL PROVIDER IF: Contractions: Contractions or cramps become more frequent than 8 in one hour or 4 in 20 minutes; Regular painful contractions every 5 minutes or less for one hour. Time your contractions from the beginning of one to the beginning of the next Pressure: Pressure in your vagina or lower abdomen that may feel like the baby is pushing down Period Like Cramps: Period-like cramps or low dull backache that may come and go Cramps/Diarrhea: Abdominal cramps that may be accompanied by diarrhea Gush of Fluid/Blood: Gush of fluid or blood from your vagina (it is normal to have spotting after vaginal exam or intercourse) Vaginal Discharge: Change in the type or amount of vaginal discharge Decreased Movement: Your baby is not moving as much as usual- 4 movements in 1 hour after drinking and resting on side Temperature: Temperature greater than 100.0(F) orally
--- NOTE | 2016-12-03 16:46 | L&D Discharge Summary ---
OB Discharge Summary Datetime Report Generated by CPN: 12/03/2016 16:45 DISCHARGE DIAGNOSIS Diagnosis/Symptoms: Other Diagnoses/Symptoms Other: not in labor, no OB complaints. Sen tback to ER for eval of left sided numbness and left arm weakness. Gestation: 26.1 Number of Babies in Womb: 1 DIET/ACTIVITY/RESTRICTIONS Diet: Regular Activity: Normal Activity TEACHING/INSTRUCTIONS/REFERRALS Instructions Given To: patient Instructions Understood: Patient Verbalized Understanding; Support Person Verbalized Understanding Referrals: None DISCHARGE INFORMATION Discharged AMA: No Discharge Date/Time: 11/29/2016 14:44 Discharged To: Other Discharge Provider Name: Dr. Rutherford Accompanied By: PERINATAL COORDINATOR Discharge Method: Wheelchair Condition: Stable FOLLOW UP INFORMATION Follow Up With: [facility] Follow Up On: As Scheduled Follow Up Phone Number: [facility] - Comments: Patient discharged to ER for further eval of non-OB complaint of left sided numbness and left arm weakness, blurry vision, and photophobia. GENERAL INSTR-CALL PROVIDER IF: Contractions: Contractions or cramps become more frequent than 8 in one hour or 4 in 20 minutes; Regular painful contractions every 5 minutes or less for one hour. Time your contractions from the beginning of one to the beginning of the next Pressure: Pressure in your vagina or lower abdomen that may feel like the baby is pushing down Period Like Cramps: Period-like cramps or low dull backache that may come and go Cramps/Diarrhea: Abdominal cramps that may be accompanied by diarrhea Gush of Fluid/Blood: Gush of fluid or blood from your vagina (it is normal to have spotting after vaginal exam or intercourse) Vaginal Discharge: Change in the type or amount of vaginal discharge Decreased Movement: Your baby is not moving as much as usual- 4 movements in 1 hour after drinking and resting on side Temperature: Temperature greater than 100.0(F) orally
--- NOTE | 2016-12-03 22:46 | L&D Discharge Summary ---
OB Discharge Summary Datetime Report Generated by CPN: 12/03/2016 22:45 DISCHARGE DIAGNOSIS Diagnosis/Symptoms: Other Diagnoses/Symptoms Other: not in labor, no OB complaints. Sen tback to ER for eval of left sided numbness and left arm weakness. Gestation: 26.1 Number of Babies in Womb: 1 DIET/ACTIVITY/RESTRICTIONS Diet: Regular Activity: Normal Activity TEACHING/INSTRUCTIONS/REFERRALS Instructions Given To: patient Instructions Understood: Patient Verbalized Understanding; Support Person Verbalized Understanding Referrals: None DISCHARGE INFORMATION Discharged AMA: No Discharge Date/Time: 11/29/2016 14:44 Discharged To: Other Discharge Provider Name: Dr. Rutherford Accompanied By: PIGMENT FURNACE TENDER Discharge Method: Wheelchair Condition: Stable FOLLOW UP INFORMATION Follow Up With: [facility] Follow Up On: As Scheduled Follow Up Phone Number: [facility] - Comments: Patient discharged to ER for further eval of non-OB complaint of left sided numbness and left arm weakness, blurry vision, and photophobia. GENERAL INSTR-CALL PROVIDER IF: Contractions: Contractions or cramps become more frequent than 8 in one hour or 4 in 20 minutes; Regular painful contractions every 5 minutes or less for one hour. Time your contractions from the beginning of one to the beginning of the next Pressure: Pressure in your vagina or lower abdomen that may feel like the baby is pushing down Period Like Cramps: Period-like cramps or low dull backache that may come and go Cramps/Diarrhea: Abdominal cramps that may be accompanied by diarrhea Gush of Fluid/Blood: Gush of fluid or blood from your vagina (it is normal to have spotting after vaginal exam or intercourse) Vaginal Discharge: Change in the type or amount of vaginal discharge Decreased Movement: Your baby is not moving as much as usual- 4 movements in 1 hour after drinking and resting on side Temperature: Temperature greater than 100.0(F) orally
--- NOTE | 2016-12-04 04:46 | L&D Discharge Summary ---
OB Discharge Summary Datetime Report Generated by CPN: 12/04/2016 04:45 DISCHARGE DIAGNOSIS Diagnosis/Symptoms: Other Diagnoses/Symptoms Other: not in labor, no OB complaints. Sen tback to ER for eval of left sided numbness and left arm weakness. Gestation: 26.1 Number of Babies in Womb: 1 DIET/ACTIVITY/RESTRICTIONS Diet: Regular Activity: Normal Activity TEACHING/INSTRUCTIONS/REFERRALS Instructions Given To: patient Instructions Understood: Patient Verbalized Understanding; Support Person Verbalized Understanding Referrals: None DISCHARGE INFORMATION Discharged AMA: No Discharge Date/Time: 11/29/2016 14:44 Discharged To: Other Discharge Provider Name: Dr. Rutherford Accompanied By: ON CALL Discharge Method: Wheelchair Condition: Stable FOLLOW UP INFORMATION Follow Up With: [facility] Follow Up On: As Scheduled Follow Up Phone Number: [facility] - Comments: Patient discharged to ER for further eval of non-OB complaint of left sided numbness and left arm weakness, blurry vision, and photophobia. GENERAL INSTR-CALL PROVIDER IF: Contractions: Contractions or cramps become more frequent than 8 in one hour or 4 in 20 minutes; Regular painful contractions every 5 minutes or less for one hour. Time your contractions from the beginning of one to the beginning of the next Pressure: Pressure in your vagina or lower abdomen that may feel like the baby is pushing down Period Like Cramps: Period-like cramps or low dull backache that may come and go Cramps/Diarrhea: Abdominal cramps that may be accompanied by diarrhea Gush of Fluid/Blood: Gush of fluid or blood from your vagina (it is normal to have spotting after vaginal exam or intercourse) Vaginal Discharge: Change in the type or amount of vaginal discharge Decreased Movement: Your baby is not moving as much as usual- 4 movements in 1 hour after drinking and resting on side Temperature: Temperature greater than 100.0(F) orally
--- NOTE | 2016-12-04 10:46 | L&D Discharge Summary ---
OB Discharge Summary Datetime Report Generated by CPN: 12/04/2016 10:45 DISCHARGE DIAGNOSIS Diagnosis/Symptoms: Other Diagnoses/Symptoms Other: not in labor, no OB complaints. Sen tback to ER for eval of left sided numbness and left arm weakness. Gestation: 26.1 Number of Babies in Womb: 1 DIET/ACTIVITY/RESTRICTIONS Diet: Regular Activity: Normal Activity TEACHING/INSTRUCTIONS/REFERRALS Instructions Given To: patient Instructions Understood: Patient Verbalized Understanding; Support Person Verbalized Understanding Referrals: None DISCHARGE INFORMATION Discharged AMA: No Discharge Date/Time: 11/29/2016 14:44 Discharged To: Other Discharge Provider Name: Dr. Rutherford Accompanied By: SUPERVISOR STEEL DIVISION Discharge Method: Wheelchair Condition: Stable FOLLOW UP INFORMATION Follow Up With: [facility] Follow Up On: As Scheduled Follow Up Phone Number: [facility] - Comments: Patient discharged to ER for further eval of non-OB complaint of left sided numbness and left arm weakness, blurry vision, and photophobia. GENERAL INSTR-CALL PROVIDER IF: Contractions: Contractions or cramps become more frequent than 8 in one hour or 4 in 20 minutes; Regular painful contractions every 5 minutes or less for one hour. Time your contractions from the beginning of one to the beginning of the next Pressure: Pressure in your vagina or lower abdomen that may feel like the baby is pushing down Period Like Cramps: Period-like cramps or low dull backache that may come and go Cramps/Diarrhea: Abdominal cramps that may be accompanied by diarrhea Gush of Fluid/Blood: Gush of fluid or blood from your vagina (it is normal to have spotting after vaginal exam or intercourse) Vaginal Discharge: Change in the type or amount of vaginal discharge Decreased Movement: Your baby is not moving as much as usual- 4 movements in 1 hour after drinking and resting on side Temperature: Temperature greater than 100.0(F) orally
--- NOTE | 2016-12-04 16:46 | L&D Discharge Summary ---
OB Discharge Summary Datetime Report Generated by CPN: 12/04/2016 16:45 DISCHARGE DIAGNOSIS Diagnosis/Symptoms: Other Diagnoses/Symptoms Other: not in labor, no OB complaints. Sen tback to ER for eval of left sided numbness and left arm weakness. Gestation: 26.1 Number of Babies in Womb: 1 DIET/ACTIVITY/RESTRICTIONS Diet: Regular Activity: Normal Activity TEACHING/INSTRUCTIONS/REFERRALS Instructions Given To: patient Instructions Understood: Patient Verbalized Understanding; Support Person Verbalized Understanding Referrals: None DISCHARGE INFORMATION Discharged AMA: No Discharge Date/Time: 11/29/2016 14:44 Discharged To: Other Discharge Provider Name: Dr. Rutherford Accompanied By: REGISTERED NURSE MIDWIFE Discharge Method: Wheelchair Condition: Stable FOLLOW UP INFORMATION Follow Up With: [facility] Follow Up On: As Scheduled Follow Up Phone Number: [facility] - Comments: Patient discharged to ER for further eval of non-OB complaint of left sided numbness and left arm weakness, blurry vision, and photophobia. GENERAL INSTR-CALL PROVIDER IF: Contractions: Contractions or cramps become more frequent than 8 in one hour or 4 in 20 minutes; Regular painful contractions every 5 minutes or less for one hour. Time your contractions from the beginning of one to the beginning of the next Pressure: Pressure in your vagina or lower abdomen that may feel like the baby is pushing down Period Like Cramps: Period-like cramps or low dull backache that may come and go Cramps/Diarrhea: Abdominal cramps that may be accompanied by diarrhea Gush of Fluid/Blood: Gush of fluid or blood from your vagina (it is normal to have spotting after vaginal exam or intercourse) Vaginal Discharge: Change in the type or amount of vaginal discharge Decreased Movement: Your baby is not moving as much as usual- 4 movements in 1 hour after drinking and resting on side Temperature: Temperature greater than 100.0(F) orally
--- NOTE | 2016-12-04 22:45 | L&D Discharge Summary ---
OB Discharge Summary Datetime Report Generated by CPN: 12/04/2016 22:45 DISCHARGE DIAGNOSIS Diagnosis/Symptoms: Other Diagnoses/Symptoms Other: not in labor, no OB complaints. Sen tback to ER for eval of left sided numbness and left arm weakness. Gestation: 26.1 Number of Babies in Womb: 1 DIET/ACTIVITY/RESTRICTIONS Diet: Regular Activity: Normal Activity TEACHING/INSTRUCTIONS/REFERRALS Instructions Given To: patient Instructions Understood: Patient Verbalized Understanding; Support Person Verbalized Understanding Referrals: None DISCHARGE INFORMATION Discharged AMA: No Discharge Date/Time: 11/29/2016 14:44 Discharged To: Other Discharge Provider Name: Dr. Rutherford Accompanied By: SENIOR INFORMATION SYSTEMS ARCHITECT Discharge Method: Wheelchair Condition: Stable FOLLOW UP INFORMATION Follow Up With: [facility] Follow Up On: As Scheduled Follow Up Phone Number: [facility] - Comments: Patient discharged to ER for further eval of non-OB complaint of left sided numbness and left arm weakness, blurry vision, and photophobia. GENERAL INSTR-CALL PROVIDER IF: Contractions: Contractions or cramps become more frequent than 8 in one hour or 4 in 20 minutes; Regular painful contractions every 5 minutes or less for one hour. Time your contractions from the beginning of one to the beginning of the next Pressure: Pressure in your vagina or lower abdomen that may feel like the baby is pushing down Period Like Cramps: Period-like cramps or low dull backache that may come and go Cramps/Diarrhea: Abdominal cramps that may be accompanied by diarrhea Gush of Fluid/Blood: Gush of fluid or blood from your vagina (it is normal to have spotting after vaginal exam or intercourse) Vaginal Discharge: Change in the type or amount of vaginal discharge Decreased Movement: Your baby is not moving as much as usual- 4 movements in 1 hour after drinking and resting on side Temperature: Temperature greater than 100.0(F) orally
--- NOTE | 2016-12-05 04:45 | L&D Discharge Summary ---
OB Discharge Summary Datetime Report Generated by CPN: 12/05/2016 04:45 DISCHARGE DIAGNOSIS Diagnosis/Symptoms: Other Diagnoses/Symptoms Other: not in labor, no OB complaints. Sen tback to ER for eval of left sided numbness and left arm weakness. Gestation: 26.1 Number of Babies in Womb: 1 DIET/ACTIVITY/RESTRICTIONS Diet: Regular Activity: Normal Activity TEACHING/INSTRUCTIONS/REFERRALS Instructions Given To: patient Instructions Understood: Patient Verbalized Understanding; Support Person Verbalized Understanding Referrals: None DISCHARGE INFORMATION Discharged AMA: No Discharge Date/Time: 11/29/2016 14:44 Discharged To: Other Discharge Provider Name: Dr. Rutherford Accompanied By: HEATER INSTALLER Discharge Method: Wheelchair Condition: Stable FOLLOW UP INFORMATION Follow Up With: [facility] Follow Up On: As Scheduled Follow Up Phone Number: [facility] - Comments: Patient discharged to ER for further eval of non-OB complaint of left sided numbness and left arm weakness, blurry vision, and photophobia. GENERAL INSTR-CALL PROVIDER IF: Contractions: Contractions or cramps become more frequent than 8 in one hour or 4 in 20 minutes; Regular painful contractions every 5 minutes or less for one hour. Time your contractions from the beginning of one to the beginning of the next Pressure: Pressure in your vagina or lower abdomen that may feel like the baby is pushing down Period Like Cramps: Period-like cramps or low dull backache that may come and go Cramps/Diarrhea: Abdominal cramps that may be accompanied by diarrhea Gush of Fluid/Blood: Gush of fluid or blood from your vagina (it is normal to have spotting after vaginal exam or intercourse) Vaginal Discharge: Change in the type or amount of vaginal discharge Decreased Movement: Your baby is not moving as much as usual- 4 movements in 1 hour after drinking and resting on side Temperature: Temperature greater than 100.0(F) orally
--- NOTE | 2016-12-05 10:46 | L&D Discharge Summary ---
OB Discharge Summary Datetime Report Generated by CPN: 12/05/2016 10:45 DISCHARGE DIAGNOSIS Diagnosis/Symptoms: Other Diagnoses/Symptoms Other: not in labor, no OB complaints. Sen tback to ER for eval of left sided numbness and left arm weakness. Gestation: 26.1 Number of Babies in Womb: 1 DIET/ACTIVITY/RESTRICTIONS Diet: Regular Activity: Normal Activity TEACHING/INSTRUCTIONS/REFERRALS Instructions Given To: patient Instructions Understood: Patient Verbalized Understanding; Support Person Verbalized Understanding Referrals: None DISCHARGE INFORMATION Discharged AMA: No Discharge Date/Time: 11/29/2016 14:44 Discharged To: Other Discharge Provider Name: Dr. Rutherford Accompanied By: HOME SERVICE DEMONSTRATOR Discharge Method: Wheelchair Condition: Stable FOLLOW UP INFORMATION Follow Up With: [facility] Follow Up On: As Scheduled Follow Up Phone Number: [facility] - Comments: Patient discharged to ER for further eval of non-OB complaint of left sided numbness and left arm weakness, blurry vision, and photophobia. GENERAL INSTR-CALL PROVIDER IF: Contractions: Contractions or cramps become more frequent than 8 in one hour or 4 in 20 minutes; Regular painful contractions every 5 minutes or less for one hour. Time your contractions from the beginning of one to the beginning of the next Pressure: Pressure in your vagina or lower abdomen that may feel like the baby is pushing down Period Like Cramps: Period-like cramps or low dull backache that may come and go Cramps/Diarrhea: Abdominal cramps that may be accompanied by diarrhea Gush of Fluid/Blood: Gush of fluid or blood from your vagina (it is normal to have spotting after vaginal exam or intercourse) Vaginal Discharge: Change in the type or amount of vaginal discharge Decreased Movement: Your baby is not moving as much as usual- 4 movements in 1 hour after drinking and resting on side Temperature: Temperature greater than 100.0(F) orally
--- NOTE | 2016-12-05 16:45 | L&D Discharge Summary ---
OB Discharge Summary Datetime Report Generated by CPN: 12/05/2016 16:45 DISCHARGE DIAGNOSIS Diagnosis/Symptoms: Other Diagnoses/Symptoms Other: not in labor, no OB complaints. Sen tback to ER for eval of left sided numbness and left arm weakness. Gestation: 26.1 Number of Babies in Womb: 1 DIET/ACTIVITY/RESTRICTIONS Diet: Regular Activity: Normal Activity TEACHING/INSTRUCTIONS/REFERRALS Instructions Given To: patient Instructions Understood: Patient Verbalized Understanding; Support Person Verbalized Understanding Referrals: None DISCHARGE INFORMATION Discharged AMA: No Discharge Date/Time: 11/29/2016 14:44 Discharged To: Other Discharge Provider Name: Dr. Rutherford Accompanied By: BRAKE LININGS COATER Discharge Method: Wheelchair Condition: Stable FOLLOW UP INFORMATION Follow Up With: [facility] Follow Up On: As Scheduled Follow Up Phone Number: [facility] - Comments: Patient discharged to ER for further eval of non-OB complaint of left sided numbness and left arm weakness, blurry vision, and photophobia. GENERAL INSTR-CALL PROVIDER IF: Contractions: Contractions or cramps become more frequent than 8 in one hour or 4 in 20 minutes; Regular painful contractions every 5 minutes or less for one hour. Time your contractions from the beginning of one to the beginning of the next Pressure: Pressure in your vagina or lower abdomen that may feel like the baby is pushing down Period Like Cramps: Period-like cramps or low dull backache that may come and go Cramps/Diarrhea: Abdominal cramps that may be accompanied by diarrhea Gush of Fluid/Blood: Gush of fluid or blood from your vagina (it is normal to have spotting after vaginal exam or intercourse) Vaginal Discharge: Change in the type or amount of vaginal discharge Decreased Movement: Your baby is not moving as much as usual- 4 movements in 1 hour after drinking and resting on side Temperature: Temperature greater than 100.0(F) orally
--- NOTE | 2016-12-05 22:46 | L&D Discharge Summary ---
OB Discharge Summary Datetime Report Generated by CPN: 12/05/2016 22:45 DISCHARGE DIAGNOSIS Diagnosis/Symptoms: Other Diagnoses/Symptoms Other: not in labor, no OB complaints. Sen tback to ER for eval of left sided numbness and left arm weakness. Gestation: 26.1 Number of Babies in Womb: 1 DIET/ACTIVITY/RESTRICTIONS Diet: Regular Activity: Normal Activity TEACHING/INSTRUCTIONS/REFERRALS Instructions Given To: patient Instructions Understood: Patient Verbalized Understanding; Support Person Verbalized Understanding Referrals: None DISCHARGE INFORMATION Discharged AMA: No Discharge Date/Time: 11/29/2016 14:44 Discharged To: Other Discharge Provider Name: Dr. Rutherford Accompanied By: STEEL HEATER Discharge Method: Wheelchair Condition: Stable FOLLOW UP INFORMATION Follow Up With: [facility] Follow Up On: As Scheduled Follow Up Phone Number: [facility] - Comments: Patient discharged to ER for further eval of non-OB complaint of left sided numbness and left arm weakness, blurry vision, and photophobia. GENERAL INSTR-CALL PROVIDER IF: Contractions: Contractions or cramps become more frequent than 8 in one hour or 4 in 20 minutes; Regular painful contractions every 5 minutes or less for one hour. Time your contractions from the beginning of one to the beginning of the next Pressure: Pressure in your vagina or lower abdomen that may feel like the baby is pushing down Period Like Cramps: Period-like cramps or low dull backache that may come and go Cramps/Diarrhea: Abdominal cramps that may be accompanied by diarrhea Gush of Fluid/Blood: Gush of fluid or blood from your vagina (it is normal to have spotting after vaginal exam or intercourse) Vaginal Discharge: Change in the type or amount of vaginal discharge Decreased Movement: Your baby is not moving as much as usual- 4 movements in 1 hour after drinking and resting on side Temperature: Temperature greater than 100.0(F) orally
--- NOTE | 2016-12-06 04:45 | L&D Discharge Summary ---
OB Discharge Summary Datetime Report Generated by CPN: 12/06/2016 04:45 DISCHARGE DIAGNOSIS Diagnosis/Symptoms: Other Diagnoses/Symptoms Other: not in labor, no OB complaints. Sen tback to ER for eval of left sided numbness and left arm weakness. Gestation: 26.1 Number of Babies in Womb: 1 DIET/ACTIVITY/RESTRICTIONS Diet: Regular Activity: Normal Activity TEACHING/INSTRUCTIONS/REFERRALS Instructions Given To: patient Instructions Understood: Patient Verbalized Understanding; Support Person Verbalized Understanding Referrals: None DISCHARGE INFORMATION Discharged AMA: No Discharge Date/Time: 11/29/2016 14:44 Discharged To: Other Discharge Provider Name: Dr. Rutherford Accompanied By: EMULSIFICATION OPERATOR Discharge Method: Wheelchair Condition: Stable FOLLOW UP INFORMATION Follow Up With: [facility] Follow Up On: As Scheduled Follow Up Phone Number: [facility] - Comments: Patient discharged to ER for further eval of non-OB complaint of left sided numbness and left arm weakness, blurry vision, and photophobia. GENERAL INSTR-CALL PROVIDER IF: Contractions: Contractions or cramps become more frequent than 8 in one hour or 4 in 20 minutes; Regular painful contractions every 5 minutes or less for one hour. Time your contractions from the beginning of one to the beginning of the next Pressure: Pressure in your vagina or lower abdomen that may feel like the baby is pushing down Period Like Cramps: Period-like cramps or low dull backache that may come and go Cramps/Diarrhea: Abdominal cramps that may be accompanied by diarrhea Gush of Fluid/Blood: Gush of fluid or blood from your vagina (it is normal to have spotting after vaginal exam or intercourse) Vaginal Discharge: Change in the type or amount of vaginal discharge Decreased Movement: Your baby is not moving as much as usual- 4 movements in 1 hour after drinking and resting on side Temperature: Temperature greater than 100.0(F) orally
--- NOTE | 2016-12-06 10:46 | L&D Discharge Summary ---
OB Discharge Summary Datetime Report Generated by CPN: 12/06/2016 10:45 DISCHARGE DIAGNOSIS Diagnosis/Symptoms: Other Diagnoses/Symptoms Other: not in labor, no OB complaints. Sen tback to ER for eval of left sided numbness and left arm weakness. Gestation: 26.1 Number of Babies in Womb: 1 DIET/ACTIVITY/RESTRICTIONS Diet: Regular Activity: Normal Activity TEACHING/INSTRUCTIONS/REFERRALS Instructions Given To: patient Instructions Understood: Patient Verbalized Understanding; Support Person Verbalized Understanding Referrals: None DISCHARGE INFORMATION Discharged AMA: No Discharge Date/Time: 11/29/2016 14:44 Discharged To: Other Discharge Provider Name: Dr. Rutherford Accompanied By: REGIONAL FACILITIES MANAGER Discharge Method: Wheelchair Condition: Stable FOLLOW UP INFORMATION Follow Up With: [facility] Follow Up On: As Scheduled Follow Up Phone Number: [facility] - Comments: Patient discharged to ER for further eval of non-OB complaint of left sided numbness and left arm weakness, blurry vision, and photophobia. GENERAL INSTR-CALL PROVIDER IF: Contractions: Contractions or cramps become more frequent than 8 in one hour or 4 in 20 minutes; Regular painful contractions every 5 minutes or less for one hour. Time your contractions from the beginning of one to the beginning of the next Pressure: Pressure in your vagina or lower abdomen that may feel like the baby is pushing down Period Like Cramps: Period-like cramps or low dull backache that may come and go Cramps/Diarrhea: Abdominal cramps that may be accompanied by diarrhea Gush of Fluid/Blood: Gush of fluid or blood from your vagina (it is normal to have spotting after vaginal exam or intercourse) Vaginal Discharge: Change in the type or amount of vaginal discharge Decreased Movement: Your baby is not moving as much as usual- 4 movements in 1 hour after drinking and resting on side Temperature: Temperature greater than 100.0(F) orally
--- NOTE | 2016-12-06 16:46 | L&D Discharge Summary ---
OB Discharge Summary Datetime Report Generated by CPN: 12/06/2016 16:45 DISCHARGE DIAGNOSIS Diagnosis/Symptoms: Other Diagnoses/Symptoms Other: not in labor, no OB complaints. Sen tback to ER for eval of left sided numbness and left arm weakness. Gestation: 26.1 Number of Babies in Womb: 1 DIET/ACTIVITY/RESTRICTIONS Diet: Regular Activity: Normal Activity TEACHING/INSTRUCTIONS/REFERRALS Instructions Given To: patient Instructions Understood: Patient Verbalized Understanding; Support Person Verbalized Understanding Referrals: None DISCHARGE INFORMATION Discharged AMA: No Discharge Date/Time: 11/29/2016 14:44 Discharged To: Other Discharge Provider Name: Dr. Rutherford Accompanied By: CNC LATHE PROGRAMMER Discharge Method: Wheelchair Condition: Stable FOLLOW UP INFORMATION Follow Up With: [facility] Follow Up On: As Scheduled Follow Up Phone Number: [facility] - Comments: Patient discharged to ER for further eval of non-OB complaint of left sided numbness and left arm weakness, blurry vision, and photophobia. GENERAL INSTR-CALL PROVIDER IF: Contractions: Contractions or cramps become more frequent than 8 in one hour or 4 in 20 minutes; Regular painful contractions every 5 minutes or less for one hour. Time your contractions from the beginning of one to the beginning of the next Pressure: Pressure in your vagina or lower abdomen that may feel like the baby is pushing down Period Like Cramps: Period-like cramps or low dull backache that may come and go Cramps/Diarrhea: Abdominal cramps that may be accompanied by diarrhea Gush of Fluid/Blood: Gush of fluid or blood from your vagina (it is normal to have spotting after vaginal exam or intercourse) Vaginal Discharge: Change in the type or amount of vaginal discharge Decreased Movement: Your baby is not moving as much as usual- 4 movements in 1 hour after drinking and resting on side Temperature: Temperature greater than 100.0(F) orally
--- NOTE | 2016-12-06 22:46 | L&D Discharge Summary ---
OB Discharge Summary Datetime Report Generated by CPN: 12/06/2016 22:45 DISCHARGE DIAGNOSIS Diagnosis/Symptoms: Other Diagnoses/Symptoms Other: not in labor, no OB complaints. Sen tback to ER for eval of left sided numbness and left arm weakness. Gestation: 26.1 Number of Babies in Womb: 1 DIET/ACTIVITY/RESTRICTIONS Diet: Regular Activity: Normal Activity TEACHING/INSTRUCTIONS/REFERRALS Instructions Given To: patient Instructions Understood: Patient Verbalized Understanding; Support Person Verbalized Understanding Referrals: None DISCHARGE INFORMATION Discharged AMA: No Discharge Date/Time: 11/29/2016 14:44 Discharged To: Other Discharge Provider Name: Dr. Rutherford Accompanied By: MEDICAL REVIEW SPECIALIST Discharge Method: Wheelchair Condition: Stable FOLLOW UP INFORMATION Follow Up With: [facility] Follow Up On: As Scheduled Follow Up Phone Number: [facility] - Comments: Patient discharged to ER for further eval of non-OB complaint of left sided numbness and left arm weakness, blurry vision, and photophobia. GENERAL INSTR-CALL PROVIDER IF: Contractions: Contractions or cramps become more frequent than 8 in one hour or 4 in 20 minutes; Regular painful contractions every 5 minutes or less for one hour. Time your contractions from the beginning of one to the beginning of the next Pressure: Pressure in your vagina or lower abdomen that may feel like the baby is pushing down Period Like Cramps: Period-like cramps or low dull backache that may come and go Cramps/Diarrhea: Abdominal cramps that may be accompanied by diarrhea Gush of Fluid/Blood: Gush of fluid or blood from your vagina (it is normal to have spotting after vaginal exam or intercourse) Vaginal Discharge: Change in the type or amount of vaginal discharge Decreased Movement: Your baby is not moving as much as usual- 4 movements in 1 hour after drinking and resting on side Temperature: Temperature greater than 100.0(F) orally
--- NOTE | 2016-12-07 04:46 | L&D Discharge Summary ---
OB Discharge Summary Datetime Report Generated by CPN: 12/07/2016 04:45 DISCHARGE DIAGNOSIS Diagnosis/Symptoms: Other Diagnoses/Symptoms Other: not in labor, no OB complaints. Sen tback to ER for eval of left sided numbness and left arm weakness. Gestation: 26.1 Number of Babies in Womb: 1 DIET/ACTIVITY/RESTRICTIONS Diet: Regular Activity: Normal Activity TEACHING/INSTRUCTIONS/REFERRALS Instructions Given To: patient Instructions Understood: Patient Verbalized Understanding; Support Person Verbalized Understanding Referrals: None DISCHARGE INFORMATION Discharged AMA: No Discharge Date/Time: 11/29/2016 14:44 Discharged To: Other Discharge Provider Name: Dr. Rutherford Accompanied By: SAFETY INVESTIGATOR Discharge Method: Wheelchair Condition: Stable FOLLOW UP INFORMATION Follow Up With: [facility] Follow Up On: As Scheduled Follow Up Phone Number: [facility] - Comments: Patient discharged to ER for further eval of non-OB complaint of left sided numbness and left arm weakness, blurry vision, and photophobia. GENERAL INSTR-CALL PROVIDER IF: Contractions: Contractions or cramps become more frequent than 8 in one hour or 4 in 20 minutes; Regular painful contractions every 5 minutes or less for one hour. Time your contractions from the beginning of one to the beginning of the next Pressure: Pressure in your vagina or lower abdomen that may feel like the baby is pushing down Period Like Cramps: Period-like cramps or low dull backache that may come and go Cramps/Diarrhea: Abdominal cramps that may be accompanied by diarrhea Gush of Fluid/Blood: Gush of fluid or blood from your vagina (it is normal to have spotting after vaginal exam or intercourse) Vaginal Discharge: Change in the type or amount of vaginal discharge Decreased Movement: Your baby is not moving as much as usual- 4 movements in 1 hour after drinking and resting on side Temperature: Temperature greater than 100.0(F) orally
--- NOTE | 2016-12-07 10:46 | L&D Discharge Summary ---
OB Discharge Summary Datetime Report Generated by CPN: 12/07/2016 10:45 DISCHARGE DIAGNOSIS Diagnosis/Symptoms: Other Diagnoses/Symptoms Other: not in labor, no OB complaints. Sen tback to ER for eval of left sided numbness and left arm weakness. Gestation: 26.1 Number of Babies in Womb: 1 DIET/ACTIVITY/RESTRICTIONS Diet: Regular Activity: Normal Activity TEACHING/INSTRUCTIONS/REFERRALS Instructions Given To: patient Instructions Understood: Patient Verbalized Understanding; Support Person Verbalized Understanding Referrals: None DISCHARGE INFORMATION Discharged AMA: No Discharge Date/Time: 11/29/2016 14:44 Discharged To: Other Discharge Provider Name: Dr. Rutherford Accompanied By: PHARMACY SCHEDULER Discharge Method: Wheelchair Condition: Stable FOLLOW UP INFORMATION Follow Up With: [facility] Follow Up On: As Scheduled Follow Up Phone Number: [facility] - Comments: Patient discharged to ER for further eval of non-OB complaint of left sided numbness and left arm weakness, blurry vision, and photophobia. GENERAL INSTR-CALL PROVIDER IF: Contractions: Contractions or cramps become more frequent than 8 in one hour or 4 in 20 minutes; Regular painful contractions every 5 minutes or less for one hour. Time your contractions from the beginning of one to the beginning of the next Pressure: Pressure in your vagina or lower abdomen that may feel like the baby is pushing down Period Like Cramps: Period-like cramps or low dull backache that may come and go Cramps/Diarrhea: Abdominal cramps that may be accompanied by diarrhea Gush of Fluid/Blood: Gush of fluid or blood from your vagina (it is normal to have spotting after vaginal exam or intercourse) Vaginal Discharge: Change in the type or amount of vaginal discharge Decreased Movement: Your baby is not moving as much as usual- 4 movements in 1 hour after drinking and resting on side Temperature: Temperature greater than 100.0(F) orally
--- NOTE | 2016-12-07 16:46 | L&D Discharge Summary ---
OB Discharge Summary Datetime Report Generated by CPN: 12/07/2016 16:45 DISCHARGE DIAGNOSIS Diagnosis/Symptoms: Other Diagnoses/Symptoms Other: not in labor, no OB complaints. Sen tback to ER for eval of left sided numbness and left arm weakness. Gestation: 26.1 Number of Babies in Womb: 1 DIET/ACTIVITY/RESTRICTIONS Diet: Regular Activity: Normal Activity TEACHING/INSTRUCTIONS/REFERRALS Instructions Given To: patient Instructions Understood: Patient Verbalized Understanding; Support Person Verbalized Understanding Referrals: None DISCHARGE INFORMATION Discharged AMA: No Discharge Date/Time: 11/29/2016 14:44 Discharged To: Other Discharge Provider Name: Dr. Rutherford Accompanied By: CLERICAL PRODUCTION WORKER Discharge Method: Wheelchair Condition: Stable FOLLOW UP INFORMATION Follow Up With: [email or web address] Follow Up On: As Scheduled Follow Up Phone Number: [email or web address] - Comments: Patient discharged to ER for further eval of non-OB complaint of left sided numbness and left arm weakness, blurry vision, and photophobia. GENERAL INSTR-CALL PROVIDER IF: Contractions: Contractions or cramps become more frequent than 8 in one hour or 4 in 20 minutes; Regular painful contractions every 5 minutes or less for one hour. Time your contractions from the beginning of one to the beginning of the next Pressure: Pressure in your vagina or lower abdomen that may feel like the baby is pushing down Period Like Cramps: Period-like cramps or low dull backache that may come and go Cramps/Diarrhea: Abdominal cramps that may be accompanied by diarrhea Gush of Fluid/Blood: Gush of fluid or blood from your vagina (it is normal to have spotting after vaginal exam or intercourse) Vaginal Discharge: Change in the type or amount of vaginal discharge Decreased Movement: Your baby is not moving as much as usual- 4 movements in 1 hour after drinking and resting on side Temperature: Temperature greater than 100.0(F) orally
--- NOTE | 2016-12-07 22:45 | L&D Discharge Summary ---
OB Discharge Summary Datetime Report Generated by CPN: 12/07/2016 22:45 DISCHARGE DIAGNOSIS Diagnosis/Symptoms: Other Diagnoses/Symptoms Other: not in labor, no OB complaints. Sen tback to ER for eval of left sided numbness and left arm weakness. Gestation: 26.1 Number of Babies in Womb: 1 DIET/ACTIVITY/RESTRICTIONS Diet: Regular Activity: Normal Activity TEACHING/INSTRUCTIONS/REFERRALS Instructions Given To: patient Instructions Understood: Patient Verbalized Understanding; Support Person Verbalized Understanding Referrals: None DISCHARGE INFORMATION Discharged AMA: No Discharge Date/Time: 11/29/2016 14:44 Discharged To: Other Discharge Provider Name: Dr. Rutherford Accompanied By: GALVANIZING POT RUNNER Discharge Method: Wheelchair Condition: Stable FOLLOW UP INFORMATION Follow Up With: [facility] Follow Up On: As Scheduled Follow Up Phone Number: [facility] - Comments: Patient discharged to ER for further eval of non-OB complaint of left sided numbness and left arm weakness, blurry vision, and photophobia. GENERAL INSTR-CALL PROVIDER IF: Contractions: Contractions or cramps become more frequent than 8 in one hour or 4 in 20 minutes; Regular painful contractions every 5 minutes or less for one hour. Time your contractions from the beginning of one to the beginning of the next Pressure: Pressure in your vagina or lower abdomen that may feel like the baby is pushing down Period Like Cramps: Period-like cramps or low dull backache that may come and go Cramps/Diarrhea: Abdominal cramps that may be accompanied by diarrhea Gush of Fluid/Blood: Gush of fluid or blood from your vagina (it is normal to have spotting after vaginal exam or intercourse) Vaginal Discharge: Change in the type or amount of vaginal discharge Decreased Movement: Your baby is not moving as much as usual- 4 movements in 1 hour after drinking and resting on side Temperature: Temperature greater than 100.0(F) orally
--- NOTE | 2016-12-08 04:45 | L&D Discharge Summary ---
OB Discharge Summary Datetime Report Generated by CPN: 12/08/2016 04:45 DISCHARGE DIAGNOSIS Diagnosis/Symptoms: Other Diagnoses/Symptoms Other: not in labor, no OB complaints. Sen tback to ER for eval of left sided numbness and left arm weakness. Gestation: 26.1 Number of Babies in Womb: 1 DIET/ACTIVITY/RESTRICTIONS Diet: Regular Activity: Normal Activity TEACHING/INSTRUCTIONS/REFERRALS Instructions Given To: patient Instructions Understood: Patient Verbalized Understanding; Support Person Verbalized Understanding Referrals: None DISCHARGE INFORMATION Discharged AMA: No Discharge Date/Time: 11/29/2016 14:44 Discharged To: Other Discharge Provider Name: Dr. Rutherford Accompanied By: ORACLE SECURITY CONSULTANT Discharge Method: Wheelchair Condition: Stable FOLLOW UP INFORMATION Follow Up With: [facility] Follow Up On: As Scheduled Follow Up Phone Number: [facility] - Comments: Patient discharged to ER for further eval of non-OB complaint of left sided numbness and left arm weakness, blurry vision, and photophobia. GENERAL INSTR-CALL PROVIDER IF: Contractions: Contractions or cramps become more frequent than 8 in one hour or 4 in 20 minutes; Regular painful contractions every 5 minutes or less for one hour. Time your contractions from the beginning of one to the beginning of the next Pressure: Pressure in your vagina or lower abdomen that may feel like the baby is pushing down Period Like Cramps: Period-like cramps or low dull backache that may come and go Cramps/Diarrhea: Abdominal cramps that may be accompanied by diarrhea Gush of Fluid/Blood: Gush of fluid or blood from your vagina (it is normal to have spotting after vaginal exam or intercourse) Vaginal Discharge: Change in the type or amount of vaginal discharge Decreased Movement: Your baby is not moving as much as usual- 4 movements in 1 hour after drinking and resting on side Temperature: Temperature greater than 100.0(F) orally
--- NOTE | 2016-12-08 10:45 | L&D Discharge Summary ---
OB Discharge Summary Datetime Report Generated by CPN: 12/08/2016 10:45 DISCHARGE DIAGNOSIS Diagnosis/Symptoms: Other Diagnoses/Symptoms Other: not in labor, no OB complaints. Sen tback to ER for eval of left sided numbness and left arm weakness. Gestation: 26.1 Number of Babies in Womb: 1 DIET/ACTIVITY/RESTRICTIONS Diet: Regular Activity: Normal Activity TEACHING/INSTRUCTIONS/REFERRALS Instructions Given To: patient Instructions Understood: Patient Verbalized Understanding; Support Person Verbalized Understanding Referrals: None DISCHARGE INFORMATION Discharged AMA: No Discharge Date/Time: 11/29/2016 14:44 Discharged To: Other Discharge Provider Name: Dr. Rutherford Accompanied By: ENVIRONMENTAL SERVICES MANAGER Discharge Method: Wheelchair Condition: Stable FOLLOW UP INFORMATION Follow Up With: [facility] Follow Up On: As Scheduled Follow Up Phone Number: [facility] - Comments: Patient discharged to ER for further eval of non-OB complaint of left sided numbness and left arm weakness, blurry vision, and photophobia. GENERAL INSTR-CALL PROVIDER IF: Contractions: Contractions or cramps become more frequent than 8 in one hour or 4 in 20 minutes; Regular painful contractions every 5 minutes or less for one hour. Time your contractions from the beginning of one to the beginning of the next Pressure: Pressure in your vagina or lower abdomen that may feel like the baby is pushing down Period Like Cramps: Period-like cramps or low dull backache that may come and go Cramps/Diarrhea: Abdominal cramps that may be accompanied by diarrhea Gush of Fluid/Blood: Gush of fluid or blood from your vagina (it is normal to have spotting after vaginal exam or intercourse) Vaginal Discharge: Change in the type or amount of vaginal discharge Decreased Movement: Your baby is not moving as much as usual- 4 movements in 1 hour after drinking and resting on side Temperature: Temperature greater than 100.0(F) orally
== END 2016-11-29 14:44 | disposition home or self-care (01) ==
LOC: LC 14:08
PROVIDERS: ATTEND Student in an Organized Health Care Education/Training Program
PROC: 4A1HXCZ Monitoring of Products of Conception, Cardiac Rate, External Approach (ICD-10-PCS; principal; 2016-11-29)
DX: O26.892 Other specified pregnancy related conditions, second trimester (principal); R20.0 Anesthesia of skin; Z3A.26 26 weeks gestation of pregnancy; M62.81 Muscle weakness (generalized)
CPT/HCPCS: 80307; 81001

== ENCOUNTER 2016-11-29 14:52 | Emergency (ER) | payer MEDICAID ==
[2016-11-29] MEDS ORDERED: METOCLOPRAMIDE HCL INJ/PF 10 MG/2 ML SDV IV ONE (15:59)
[2016-11-29] MEDS ORDERED: DIPHENHYDRAMINE HCL 50 MG/ML VIAL IV ONE (16:00)
--- NOTE | 2016-11-29 16:11 | ER Document Report ---
ED Medical Screen (RME) - General Chief Complaint: Dizziness Stated Complaint: WEAKNESS Notes: I briefly seen and evaluated this patient in my role as physician in triage. I have initiated orders based on this initial evaluation. Please see my colleague' s documentation for complete history, physical, management, diagnosis, and ultimate disposition. My brief evaluation: Patient is EGA 26 weeks, presents with lightheadedness and numbness in the left upper extremity and face. The patient has a history of hemiplegic migraines. The last one was when she was with her prior . She had a CT at that time which was negative. She followed up with a neurologist who said that he couldn't do anything because she was . Apparently there is a family history of these migraines. Patient says that she currently does not have a headache. She has had some nausea she's had some scotoma. She denies any numbness any place else. She said that this is happened only 2 other times previously. She gets lightheaded with it. She has not passed out. She denies any fevers chills or sweats. On exam, patient alert and oriented no acute distress vital signs stable patient is afebrile nontoxic appearing. Chest sounds clear and equal bilaterally. Heart rate and rhythm are normal with no murmurs. Nonfocal neurologic exam. Medical decision making: We will initiate management of migraine with Reglan and Benadryl which I expected to be safe in this stage of . TRAVEL OUTSIDE OF THE [place] IN LAST 30 DAYS: No - Related Data Allergies/Adverse Reactions: nitrofurantoin [From Macrobid] Allergy (Intermediate, Verified 11/29/16 15:47) Generalized rash nitrofurantoin macrocrystalline [From Macrobid] Allergy (Intermediate, Verified 11/29/16 15:47) Generalized rash Past Medical History - Past Medical History Cardiac Medical History: Denies: Hx Coronary Artery Disease, Hx Heart Attack, Hx Hypertension Pulmonary Medical History: Denies: Hx Asthma, Hx Bronchitis, Hx COPD, Hx Pneumonia Neurological Medical History: 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 Denies: Hx Cerebrovascular Accident, Hx Seizures Renal/ Medical History: Denies: Hx Peritoneal Dialysis Musculoskeltal Medical History: Denies Hx Arthritis Past Surgical History: Reports: Hx Adenoidectomy, Hx Oral Surgery - wisdom. Denies: Hx Hysterectomy - Immunizations Immunizations up to date: Yes Hx Diphtheria, Pertussis, Tetanus Vaccination: Yes Physical Exam - Vital signs Vitals: Temp Pulse Resp BP Pulse Ox 97.7 F 90 18 120/64 100 11/29/16 15:03 11/29/16 15:03 11/29/16 15:03 11/29/16 15:03 11/29/16 15:03 Course - Vital Signs Vital signs: Temp Pulse Resp BP Pulse Ox 97.7 F 90 18 120/64 100 11/29/16 15:03 11/29/16 15:03 11/29/16 15:03 11/29/16 15:03 11/29/16 15:03
--- NOTE | 2016-11-29 16:31 | ER Document Report ---
ED General - General Chief Complaint: Dizziness Stated Complaint: WEAKNESS Mode of Arrival: Ambulatory Information source: Patient Notes: 21-year-old female history of hemiplegic migraine headaches who is 26 weeks presents with complaints of left upper hand numbness bilateral visual disturbance. Patient notes that she is having spots in her vision. Denies any severe headache. Patient denies any vomiting. Patient was seen by WILDLIFE POLICY PROFESSIONAL and sent for evaluation as she is stable from their standpoint Patient had similar episode with her last , and extensive family history of migraine headaches TRAVEL OUTSIDE OF THE [place] IN LAST 30 DAYS: No - HPI Onset: Just prior to arrival Onset/Duration: Sudden Quality of pain: No pain Severity: Mild Pain Level: Denies Associated symptoms: Other Exacerbated by: Denies Relieved by: Denies Similar symptoms previously: Yes Recently seen / treated by doctor: Yes - Related Data Allergies/Adverse Reactions: nitrofurantoin [From Macrobid] Allergy (Intermediate, Verified 11/29/16 15:47) Generalized rash nitrofurantoin macrocrystalline [From Macrobid] Allergy (Intermediate, Verified 11/29/16 15:47) Generalized rash Past Medical History - Social History Smoking Status: Never Smoker Cigarette use (# per day): No Chew tobacco use (# tins/day): No Smoking Education Provided: No Family History: Reviewed & Not Pertinent, CAD, CVA, DM, Hyperlipidemia, Hypertension, Thyroid Disfunction, Other - Hemiplegic migraine Patient has suicidal ideation: No Patient has homicidal ideation: No - Past Medical History Cardiac Medical History: Denies: Hx Coronary Artery Disease, Hx Heart Attack, Hx Hypertension Pulmonary Medical History: Denies: Hx Asthma, Hx Bronchitis, Hx COPD, Hx Pneumonia Neurological Medical History: 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 Denies: Hx Cerebrovascular Accident, Hx Seizures Renal/ Medical History: Denies: Hx Peritoneal Dialysis Musculoskeltal Medical History: Denies Hx Arthritis Past Surgical History: Reports: Hx Adenoidectomy, Hx Oral Surgery - wisdom. Denies: Hx Hysterectomy - Immunizations Immunizations up to date: Yes Hx Diphtheria, Pertussis, Tetanus Vaccination: Yes Review of Systems - Review of Systems Notes: REVIEW OF SYSTEMS: CONSTITUTIONAL : Denies fever, chills, or sweats. Denies recent illness. EENT: Admits to visual disturbance CARDIOVASCULAR: Denies chest pain. Denies palpitations or racing or irregular heart beat. Denies ankle edema. RESPIRATORY: Denies cough, cold, or chest congestion. Denies shortness of breath, difficulty breathing, or wheezing. GASTROINTESTINAL: Denies abdominal pain or distention. Denies nausea, vomiting , or diarrhea. Denies blood in vomitus, stools, or per rectum. Denies black, tarry stools. Denies constipation. GENITOURINARY: Denies difficulty urinating, painful urination, burning, frequency, blood in urine, or discharge. FEMALE GENITOURINARY: Denies vaginal bleeding, heavy or abnormal periods, irregular periods. Denies vaginal discharge or odor. MUSCULOSKELETAL: Denies back or neck pain or stiffness. Denies joint pain or swelling. SKIN: Denies rash, lesions or sores. HEMATOLOGIC : Denies easy bruising or bleeding. LYMPHATIC: Denies swollen, enlarged glands. NEUROLOGICAL: Miss a left hand numbness PSYCHIATRIC: Denies anxiety or stress. Denies depression, suicidal ideation, or homicidal ideation. ALL OTHER SYSTEMS REVIEWED AND NEGATIVE. Dictation was performed using [employer] voice recognition software PHYSICAL EXAMINATION: GENERAL: Well-appearing, well-nourished and in no acute distress. HEAD: Atraumatic, normocephalic. EYES: Pupils equal round and reactive to light, extraocular movements intact, conjunctiva are normal. ENT: Nares patent, oropharynx clear without exudates. Moist mucous membranes. NECK: Normal range of motion, supple without lymphadenopathy LUNGS: Breath sounds clear to auscultation bilaterally and equal. No wheezes rales or rhonchi. HEART: Regular rate and rhythm without murmurs ABDOMEN: Soft, gravid abdomen Female : deferred Musculoskeletal: Normal range of motion, no pitting or edema. No cyanosis. NEUROLOGICAL: Cranial nerves grossly intact. Normal speech, normal gait. Normal sensory, motor exams finger to nose [id number] are normal PSYCH: Normal mood, normal affect. SKIN: Warm, Dry, normal turgor, no rashes or lesions noted. Physical Exam - Vital signs Vitals: Temp Pulse Resp BP Pulse Ox 97.7 F 90 18 120/64 100 11/29/16 15:03 11/29/16 15:03 11/29/16 15:03 11/29/16 15:03 11/29/16 15:03 Course - Re-evaluation Re-evalutation: 11/29/16 16:31 neurological examination notes no deficits, patient was offered a CT of the head but she wishes to defer at this time which I believe is appropriate, patient will be treated for hemiplegic migraine headache which I believe is the cause of her symptoms as she is otherwise stable I have very low suspicion for a stroke 11/29/16 18:25 Patient notes symptoms have completely resolved, she is stable for discharge. I will discharge her home with Phenergan and follow-up with neurology otherwise patient has no complaints and is quite happy After performing a Medical Screening Examination, I estimate there is LOW risk for ACUTE GLAUCOMA, TEMPORAL ARTERITIS, MENINGITIS, INCRANIAL HEMORRHAGE, or ISCHEMIC STROKE thus I consider the discharge disposition reasonable. I have reevaluated this patient multiple times and no significant life threatening changes are noted. The patient and I have discussed the diagnosis and risks, and we agree with discharging home with close follow-up with the understanding that symptoms and presentations can change. We also discussed returning to the Emergency Department immediately if new or worsening symptoms occur. We have discussed the symptoms which are most concerning (e.g., changing or worsening symptoms, new numbness or weakness, vomiting, fever) that necessitate immediate return. - Vital Signs Vital signs: Temp Pulse Resp BP Pulse Ox 97.7 F 90 18 120/64 100 11/29/16 15:03 11/29/16 15:03 11/29/16 15:03 11/29/16 15:03 11/29/16 15:03 - Laboratory Laboratory results interpreted by me: 11/29/16 16:10 Ur Leukocyte Esterase TRACE H Discharge - Discharge Clinical Impression: Migraine headache Qualifiers: Migraine type: with aura Status migrainosus presence: without status migrainosus Intractability: not intractable Qualified Code(s): G43.109 - Migraine with aura, not intractable, without status migrainosus Condition: Stable Disposition: HOME, SELF-CARE Instructions: Antinausea Medication ([facility]) Prescriptions: Promethazine HCl [Phenergan 25 mg Tablet] 1 - 2 tab PO Q6H PRN #15 tablet PRN Reason: Referrals: MARA CUNNINGHAM MD [EMERITUS] - Follow up tomorrow
[2016-11-29] MEDS ORDERED: DIPHENHYDRAMINE HCL 50 MG CAPSULE PO ONE (17:31)
[2016-11-29] MEDS ORDERED: ACETAMINOPHEN 325 MG TABLET PO ONE (17:32)
[2016-11-29 18:03] LABS: APPEARANCE,URINE CLEAR; BILIRUBIN,URINE NEGATIVE (NEGATIVE); GLUCOSE, URINE NEGATIVE (NEGATIVE); KETONES,URINE NEGATIVE (NEGATIVE); LEUKOCYTE ESTERASE,URINE TRACE (NEGATIVE); NITRITE,URINE NEGATIVE (NEGATIVE); PROTEIN,URINE NEGATIVE (NEGATIVE); URINE SPECIFIC GRAVITY 1.005; UROBILINOGEN,URINE NEGATIVE mg/dL (<2.0)
[2016-11-29 18:34] VITALS: BP 121/64
== END 2016-11-29 18:34 | disposition home or self-care (01) ==
LOC: ER 14:52
DX: G43.109 Migraine with aura, not intractable, without status migrainosus (principal); R42 Dizziness and giddiness; R53.1 Weakness; R20.0 Anesthesia of skin
CPT/HCPCS: 99284; 81001; J3490 ×2

== ENCOUNTER 2016-12-06 18:47 | Emergency (ER) | payer MEDICAID ==
[2016-12-06 18:51] VITALS: BP 134/73
[2016-12-06] MEDS ORDERED: DIPHENHYDRAMINE HCL 25 MG CAPSULE PO ONE (19:21)
[2016-12-06] MEDS ORDERED: METOCLOPRAMIDE HCL 10 MG TABLET PO ONE (19:22)
--- NOTE | 2016-12-06 19:24 | ER Document Report ---
ED Medical Screen (RME) - General Chief Complaint: Passed Out Prior to Arrival Stated Complaint: PASSED OUT Notes: This 21-year-old female patient who is almost 28 weeks reports an episode today of passing out and no feeling on her left side. She was at work when she started to lose vision more on the right side than the left. She later developed numbness to the left upper and lower extremities. She reports she tried to drive herself home, a friend called her while she was driving, she pulled over and answered her phone and the friend told her to stop trying to drive. About that time her body stiffened up. 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 She was seen here 7 days ago for the same thing. Was 2 years ago she had an extensive workup with MRIs and MRAs CTs and echo and Dopplers. At this time she starts crying and states that she couldn't remember things and that is never happened before. She is able to tell me the exact date of her EDC. I have greeted and performed a rapid initial assessment of this patient. A comprehensive ED assessment and evaluation of the patient, analysis of test results and completion of the medical decision making process will be conducted by additional ED providers. TRAVEL OUTSIDE OF THE [place] IN LAST 30 DAYS: No - Related Data Allergies/Adverse Reactions: nitrofurantoin [From Macrobid] Allergy (Intermediate, Verified 12/06/16 19:07) Generalized rash nitrofurantoin macrocrystalline [From Macrobid] Allergy (Intermediate, Verified 12/06/16 19:07) Generalized rash Past Medical History - Past Medical History Cardiac Medical History: Denies: Hx Coronary Artery Disease, Hx Heart Attack, Hx Hypertension Pulmonary Medical History: Denies: Hx Asthma, Hx Bronchitis, Hx COPD, Hx Pneumonia Neurological Medical History: 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 Denies: Hx Cerebrovascular Accident, Hx Seizures Renal/ Medical History: Denies: Hx Peritoneal Dialysis Musculoskeltal Medical History: Denies Hx Arthritis Past Surgical History: Reports: Hx Adenoidectomy, Hx Oral Surgery - wisdom. Denies: Hx Hysterectomy - Immunizations Immunizations up to date: Yes Hx Diphtheria, Pertussis, Tetanus Vaccination: Yes Physical Exam - Vital signs Vitals: Temp Pulse Resp BP Pulse Ox 97.7 F 87 14 134/73 H 98 12/06/16 18:51 12/06/16 18:51 12/06/16 18:51 12/06/16 18:51 12/06/16 18:51 Course - Vital Signs Vital signs: Temp Pulse Resp BP Pulse Ox 97.7 F 87 14 134/73 H 98 12/06/16 18:51 12/06/16 18:51 12/06/16 18:51 12/06/16 18:51 12/06/16 18:51
[2016-12-06] MEDS ORDERED: NORMAL SALINE 1000 ML 1,000 ML IV ONE (21:18)
[2016-12-06] MEDS ORDERED: DIPHENHYDRAMINE HCL 50 MG/ML VIAL IV ONE (21:18)
[2016-12-06] MEDS ORDERED: METOCLOPRAMIDE HCL INJ/PF 10 MG/2 ML SDV IV ONE (21:18)
--- NOTE | 2016-12-06 22:34 | ER Document Report ---
ED General - General Chief Complaint: Passed Out Prior to Arrival Stated Complaint: PASSED OUT Notes: Patient is a 21-year-old female currently 28 weeks who presents with multiple complaints. She states that she has intermittently had left upper matt with the weakness and numbness as well as loss of vision in association with a headache. She states that she also had a near syncopal episode earlier today this was noted to be at a separate time from the above symptoms. She was recently seen in the emergency department for the same. She has had an extensive evaluation for these complaints in the past including MR imaging of her head and neck, carotid Dopplers all which have been normal. Denies that anything seems to trigger her symptoms. Nothing worsens or symptoms. She has not tried anything for relief of her symptoms. Her symptoms have now resolved at time of my assessment. She has not seen a primary care doctor regarding his concerns. TRAVEL OUTSIDE OF THE [place] IN LAST 30 DAYS: No - Related Data Allergies/Adverse Reactions: nitrofurantoin [From Macrobid] Allergy (Intermediate, Verified 12/06/16 19:07) Generalized rash nitrofurantoin macrocrystalline [From Macrobid] Allergy (Intermediate, Verified 12/06/16 19:07) Generalized rash Past Medical History - General Information source: Patient - Social History Smoking Status: Never Smoker Frequency of alcohol use: None Drug Abuse: None Lives with: Spouse/Significant other Family History: Reviewed & Not Pertinent, CAD, CVA, DM, Hyperlipidemia, Hypertension, Thyroid Disfunction, Other - Hemiplegic migraine Patient has suicidal ideation: No Patient has homicidal ideation: No - Past Medical History Cardiac Medical History: Denies: Hx Coronary Artery Disease, Hx Heart Attack, Hx Hypertension Pulmonary Medical History: Denies: Hx Asthma, Hx Bronchitis, Hx COPD, Hx Pneumonia Neurological Medical History: 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 Denies: Hx Cerebrovascular Accident, Hx Seizures Renal/ Medical History: Denies: Hx Peritoneal Dialysis Musculoskeltal Medical History: Denies Hx Arthritis Past Surgical History: Reports: Hx Adenoidectomy, Hx Oral Surgery - wisdom. Denies: Hx Hysterectomy - Immunizations Immunizations up to date: Yes Hx Diphtheria, Pertussis, Tetanus Vaccination: Yes Review of Systems - Review of Systems Notes: Constitutional: Negative for fever. HENT: Negative for sore throat. Eyes: Negative for visual changes. Cardiovascular: Negative for chest pain. Respiratory: Negative for shortness of breath. Gastrointestinal: Negative for abdominal pain, vomiting or diarrhea. Genitourinary: Negative for dysuria. Musculoskeletal: Negative for back pain. Skin: Negative for rash. Neurological: Negative for headaches, positive for left upper extremity weakness and numbness 10 point ROS negative except as marked above and in HPI. Physical Exam - Vital signs Vitals: Temp Pulse Resp BP Pulse Ox 97.7 F 87 14 134/73 H 98 12/06/16 18:51 12/06/16 18:51 12/06/16 18:51 12/06/16 18:51 12/06/16 18:51 Interpretation: Normal Notes: PHYSICAL EXAMINATION: GENERAL: Well-appearing, well-nourished and in no acute distress. HEAD: Atraumatic, normocephalic. EYES: Pupils equal round and reactive to light, extraocular movements intact, sclera anicteric, conjunctiva are normal. ENT: nares patent, oropharynx clear without exudates. Moist mucous membranes. NECK: Normal range of motion, supple without lymphadenopathy LUNGS: Breath sounds clear to auscultation bilaterally and equal. No wheezes rales or rhonchi. HEART: Regular rate and rhythm without murmurs ABDOMEN: Soft, nontender, normoactive bowel sounds. No guarding, no rebound. No masses appreciated. EXTREMITIES: Normal range of motion, no pitting or edema. No cyanosis. NEUROLOGICAL: Face symmetric. Tongue protrudes midline. Extraocular motions intact. Pupils are 2 mm and equally reactive. Normal speech, normal gait. 5 out of 5 strength in both the distal and proximal upper and lower extremities bilaterally. Sensation is grossly intact throughout. Finger to nose testing normal. Pronator drift normal. PSYCH: Normal mood, normal affect. SKIN: Warm, Dry, normal turgor, no rashes or lesions noted. Course - Re-evaluation Re-evalutation: 12/06/16 22:31 Patient presents with multiple vague complaints that did not appear to be concerning for any acute life-threatening pathology. Patient is presented with the exact same complaint a multitude of times in the past and had extensive MR imaging of her head and neck as well as carotid Dopplers all which have been repeatedly unremarkable. Although the patient states that she cannot move her left hand she is doing so voluntarily when I walk up to the bed and has completely normal biceps and triceps strength on testing. She also has discomfort when her forearm is bent where her IV is in place. I do not suspect an acute stroke or TIA. Vitals are within normal limits at triage and at time of discharge. Physical examination is unremarkable. Patient has tolerated oral intake without difficulty. Patient was not noted to be in distress at any point during their ER visit. At this time, based on the reassuring evaluation, I do not suspect an acute ID, pulmonary embolus, aortic dissection, acute intra- abdominal pathology, stroke, or sepsis.Will discharge with return precautions and follow-up recommendations. Verbal discharge instructions given a the bedside and opportunity for questions given. Medication warnings reviewed. Patient is in agreement with this plan and has verbalized understanding of return precautions and the need for primary care follow-up in the next 24-72 hours. - Vital Signs Vital signs: Temp Pulse Resp BP Pulse Ox 97.7 F 87 14 134/73 H 98 12/06/16 18:51 12/06/16 18:51 12/06/16 18:51 12/06/16 18:51 12/06/16 18:51 Discharge - Discharge Clinical Impression: History of migraine, Paresthesias in antepartum period in second trimester Condition: Good Disposition: HOME, SELF-CARE Additional Instructions: Please follow-up with your primary care doctor regarding today's concerns. Please return to the emergency room immediately if you experience any concerning symptoms including high fevers, severe headache, chest pain, difficulty breathing, abdominal pain, slurred speech, recurrence of numbness or weakness in your arms or legs, or any other symptom that concerns you.
--- NOTE | 2016-12-08 17:08 | EKG REPORT ---
SEVERITY:- NORMAL ECG - SINUS RHYTHM : Confirmed by: Lani Quintanilla MD 08-Dec-2016 17:07:03
== END 2016-12-06 22:50 | disposition home or self-care (01) ==
LOC: ER 18:47
DX: O26.92 Pregnancy related conditions, unspecified, second trimester (principal); R20.2 Paresthesia of skin; R53.1 Weakness; R51 Headache; H53.8 Other visual disturbances; Z3A.28 28 weeks gestation of pregnancy; Z88.3 Allergy status to other anti-infective agents
CPT/HCPCS: 93005; 99284; 96361; 96374; 96375; 93010; J1200; J2765; J7030

== ENCOUNTER 2017-01-21 11:43 | Emergency (ER) | payer MEDICAID ==
[2017-01-21 11:55] VITALS: BP 112/69
--- NOTE | 2017-01-21 12:13 | ER Document Report ---
HPI - HPI Patient complains to provider of: congestion, sore throat, facial pain and cough Onset: Last week Onset/Duration: Gradual, Persistent Quality of pain: Pressure Severity: Moderate Pain Level: 4 Context: Patient complains of nasal congestion, sore throat, cough for 1 week. Now is experiencing pain over her sinuses. Patient is currently doing saline rinses, but taking no other medications. Associated Symptoms: Nonproductive cough, Earache, Sinus pain/drainage, Sore throat. denies: Chest pain, Fever, Shortness of breath Exacerbated by: Denies Relieved by: Denies Similar symptoms previously: Yes Recently seen / treated by doctor: No - ROS ROS below otherwise negative: Yes Systems Reviewed and Negative: Yes All other systems reviewed and negative - CONSTITUTIONAL Constitutional: DENIES: Fever - EENT EENT: REPORTS: Sore Throat, Ear Pain, Nasal Drainage-Purulent, Congestion - NEURO Neurology: DENIES: Headache - CARDIOVASCULAR Cardiovascular: DENIES: Chest pain - RESPIRATORY Respiratory: REPORTS: Coughing. DENIES: Trouble Breathing - GASTROINTESTINAL Gastrointestinal: DENIES: Abdominal Pain - URINARY Urinary: DENIES: Dysuria - REPRODUCTIVE Reproductive: REPORTS: : - MUSCULOSKELETAL Musculoskeletal: DENIES: Extremity pain - DERM Skin Color: Normal Skin Problems: None Past Medical History - General Information source: Patient - Social History Smoking Status: Never Smoker Chew tobacco use (# tins/day): No Frequency of alcohol use: None Drug Abuse: None Lives with: Spouse/Significant other Family History: Reviewed & Not Pertinent, CAD, CVA, DM, Hyperlipidemia, Hypertension, Thyroid Disfunction, Other - Hemiplegic migraine Patient has suicidal ideation: No Patient has homicidal ideation: No Neurological Medical History: Reports: Hx Migraine - Hemiplegic Past Surgical History: Reports: Hx Adenoidectomy, Hx Oral Surgery - wisdom - Immunizations Immunizations up to date: Yes Hx Diphtheria, Pertussis, Tetanus Vaccination: Yes Vertical Provider Document - CONSTITUTIONAL Agree With Documented VS: Yes Exam Limitations: No Limitations General Appearance: WD/WN, No Apparent Distress - INFECTION CONTROL TRAVEL OUTSIDE OF THE [place] IN LAST 30 DAYS: No - HEENT HEENT: Atraumatic, Pharyngeal Erythema. negative: Pharyngeal Exudate Notes: TMs dull bilaterally. Patient has tenderness over frontal and maxillary sinuses. - NECK Neck: Normal Inspection, Supple - RESPIRATORY Respiratory: Breath Sounds Normal, No Respiratory Distress O2 Sat by Pulse Oximetry: 99 - CARDIOVASCULAR Cardiovascular: Regular Rate, Regular Rhythm - MUSCULOSKELETAL/EXTREMETIES Musculoskeletal/Extremeties: MAEW, FROM - NEURO Level of Consciousness: Awake, Alert, Appropriate - DERM Integumentary: Warm, Dry Course - Vital Signs Vital signs: Temp Pulse Resp BP Pulse Ox 97.7 F 89 16 112/69 99 01/21/17 11:53 01/21/17 11:53 01/21/17 11:53 01/21/17 11:53 01/21/17 11:53 Discharge - Discharge Clinical Impression: Acute sinusitis, unspecified Qualifiers: Sinusitis location: other Recurrence: not specified as recurrent Qualified Code (s): J01.80 - Other acute sinusitis Condition: Good Disposition: HOME, SELF-CARE Additional Instructions: Meds as prescribed. Tylenol as needed. Continue saline rinses Follow-up with your IS CONSULTANT for recheck or your primary care doctor if not better in 4-5 days Return as needed Prescriptions: Amoxicillin 875 mg PO BID #20 tablet Fluticasone Propionate [Flonase Allergy Relief] 9.9 ml NS DAILY #1 spray.susp
== END 2017-01-21 12:36 | disposition home or self-care (01) ==
LOC: ER 11:43
DX: J01.80 Other acute sinusitis (principal); R09.81 Nasal congestion; J02.9 Acute pharyngitis, unspecified; R51 Headache; R05 Cough; H92.09 Otalgia, unspecified ear
CPT/HCPCS: 99283

== ENCOUNTER 2017-02-08 17:03 | Outpatient (CLI) | payer MEDICAID ==
[2017-02-08 18:12] LABS: APPEARANCE,URINE SLIGHTLY-CLOUDY; BILIRUBIN,URINE NEGATIVE (NEGATIVE); GLUCOSE, URINE NEGATIVE (NEGATIVE); KETONES,URINE NEGATIVE (NEGATIVE); LEUKOCYTE ESTERASE,URINE LARGE (NEGATIVE); NITRITE,URINE NEGATIVE (NEGATIVE); PROTEIN,URINE NEGATIVE (NEGATIVE); URINE SPECIFIC GRAVITY 1.019; UROBILINOGEN,URINE NEGATIVE mg/dL (<2.0)
[2017-02-08 18:29] LABS: URINE BARBITURATES SCREEN NEGATIVE; URINE METHADONE SCREEN NEGATIVE; URINE OPIATES LOW NEGATIVE; URINE PHENCYCLIDINE SCREEN NEGATIVE
[2017-02-08 18:30] LABS: AMNISURE (ROM) NEGATIVE (NEGATIVE)
--- NOTE | 2017-02-08 19:27 | Non Stress Test Report ---
Non Stress Test Datetime Report Generated by CPN: 02/08/2017 19:27 DEMOGRAPHIC Test Number: 1 EGA NST: 36.2 INDICATION Indication for Study: Ordered by Provider; Other Indication for Study (NST) Other: Eval for ctx, SROM MONITORING Monitor Explained: Monitor Explained; Test Explained; Patient Verbalized Understanding Time on Monitor: 02/08/2017 18:22 Time off Monitor: 02/08/2017 18:45 NST Duration: 23 NST INTERVENTIONS NST Interventions: None Physician Notified NST: Dr. Elmer BABY A: [id number] BABY A Movement : Present Contraction Frequency : 2-5 FHR Baseline : 145 Accelerations : 15X15 Decelerations : None Variability : Moderate 6-25bpm NST Review: Meets Criteria for Reactive NST NST Review and Verified By : Angela Fan RN NST Results: Reactive NST REPORT Report Trigger: Send Report
== END 2017-02-08 19:14 | disposition home or self-care (01) ==
LOC: LC 17:03
PROVIDERS: ATTEND Obstetrics & Gynecology
PROC: 4A1HXCZ Monitoring of Products of Conception, Cardiac Rate, External Approach (ICD-10-PCS; principal; 2017-02-08)
DX: O47.03 False labor before 37 completed weeks of gestation, third trimester (principal); Z3A.36 36 weeks gestation of pregnancy
CPT/HCPCS: 80307; 81005; 84112

== ENCOUNTER 2017-03-10 09:55 | Inpatient (IN) | payer MEDICAID ==
[2017-03-10] MEDS ORDERED: RINGERS SOLUTION,LACTATED 1,000 ML IV ONE (10:02)
[2017-03-10] MEDS ORDERED: RINGERS SOLUTION,LACTATED 1,000 ML IV PRN (10:02)
[2017-03-10] MEDS ORDERED: PENICILLIN G POTASSIUM 5,000,000 UNIT in DEXTROSE 5%-WATER 100 ML IV ONE (10:02)
[2017-03-10] MEDS ORDERED: OXYTOCIN/NORMAL SALINE 20 UNIT/1,000 ML RTUINJ ONE ×2 (10:03→13:54)
[2017-03-10] MEDS ORDERED: MISOPROSTOL 0.2 MG TABLET ONE (10:03)
[2017-03-10] MEDS ORDERED: LIDOCAINE 1% INJ-PF (10 MG/ML) 30 ML SDV ONE (10:03)
[2017-03-10] MEDS ORDERED: PENICILLIN G-K 5 MILLION UNIT VIAL ONE (10:04)
[2017-03-10 10:30] LABS: APPEARANCE,URINE CLOUDY; BILIRUBIN,URINE NEGATIVE (NEGATIVE); GLUCOSE, URINE NEGATIVE (NEGATIVE); KETONES,URINE NEGATIVE (NEGATIVE); LEUKOCYTE ESTERASE,URINE LARGE (NEGATIVE); NITRITE,URINE NEGATIVE (NEGATIVE); PROTEIN,URINE NEGATIVE (NEGATIVE); UROBILINOGEN,URINE NEGATIVE mg/dL (<2.0)
[2017-03-10 10:44] LABS: ABSOLUTE EOSINOPHILS # (AUTO) 0.1 10^3/uL (0.0-0.6); ABSOLUTE LYMPHOCYTES (AUTO) 2.6 10^3/uL (0.5-4.7); ABSOLUTE MONOCYTES (AUTO) 0.7 10^3/uL (0.1-1.4); ABSOLUTE NEUT (AUTO) 7.8 10^3/uL (1.7-8.2); BASOPHILS % (AUTO) 0.3 % (0-2); EOSINOPHILS % (AUTO) 1.2 % (0-6); HEMATOCRIT 32.2 % (36.0-47.0); HEMOGLOBIN 10.6 g/dL (12.0-15.5); HGB HCT DIFFERENCE -0.4; LYMPHOCYTES % (AUTO) 22.6 % (13-45); MEAN CORPUSCULAR HEMOGLOBIN 26.9 pg (27.0-33.4); MEAN CORPUSCULAR HGB CONC 32.8 g/dL (32.0-36.0); MEAN CORPUSCULAR VOLUME 82 fl (80-97); MONOCYTES % (AUTO) 6.3 % (3-13); RED BLOOD COUNT 3.93 10^6/uL (3.72-5.28); RED CELL DISTRIBUTION WIDTH 18.7 % (11.5-14.0); SEGMENTED NEUTROPHILS % (AUTO) 69.6 % (42-78); WHITE BLOOD COUNT 11.3 10^3/uL (4.0-10.5)
[2017-03-10 10:55] LABS: URINE BARBITURATES SCREEN NEGATIVE; URINE METHADONE SCREEN NEGATIVE; URINE OPIATES LOW NEGATIVE; URINE PHENCYCLIDINE SCREEN NEGATIVE
[2017-03-10] MEDS ORDERED: IBUPROFEN 800 MG TABLET ONE (11:42)
[2017-03-10] MEDS ORDERED: MEASLES,MUMPS&RUBELLA VACC/PF 0.5 ML VIAL SUBCUT PRN (12:06)
[2017-03-10] MEDS ORDERED: BENZOCAINE/MENTHOL AEROSOL SPRAY 56 ML TOP PRN (12:06)
[2017-03-10] MEDS ORDERED: DIBUCAINE 1% OINTMENT 28 GM TP PRN (12:06)
[2017-03-10] MEDS ORDERED: ZOLPIDEM TARTRATE 5 MG TABLET PO PRN (12:06)
[2017-03-10] MEDS ORDERED: DIPH/PERTUSS(ACELL)/TETANUS VAC/PF 0.5 ML SYR (>=10YO) IM PRN (12:06)
[2017-03-10] MEDS ORDERED: OXYTOCIN/NORMAL SALINE 1,000 ML IV PRN ×2 (12:06→15:19)
[2017-03-10] MEDS ORDERED: ACETAMINOPHEN WITH CODEINE #3 TABLET PO PRN (12:06)
[2017-03-10] MEDS ORDERED: ONDANSETRON HCL 8 MG TABLET ONE (13:14)
[2017-03-10] MEDS ORDERED: CARBOPROST TROMETHAMINE INJ 250 MCG/1 ML AMPULE ONE (13:15)
[2017-03-10] MEDS ORDERED: LOPERAMIDE HCL 2 MG CAPSULE ONE ×2 (13:15→15:25)
[2017-03-10] MEDS ORDERED: PENICILLIN G-K 5 MILLION UNIT VIAL IV SCH (14:00)
[2017-03-10] MEDS ORDERED: PENICILLIN G POTASSIUM 2,500,000 UNIT in DEXTROSE 5%-WATER 50 ML IV SCH (14:03)
[2017-03-10] MEDS ORDERED: HYDROMORPHONE HCL INJ/PF 2 MG/ML AMPULE ONE (14:07)
--- NOTE | 2017-03-10 14:10 | L&D Progress Notes ---
PROGRESS NOTES Datetime Report Generated by CPN: 03/10/2017 14:09 PROGRESS NOTE Comment: RN called CNM/MD to evaluate [place] cath placed Small amount of clots expressed Evaluated by Dr. Allen Dilaudid 1 mg for pain Second bag of pitocin hung Will monitor pt on L _ D and transfer to pp once stable. VAGINAL EXAM Dilatation: 6 Effacement: 80 Contractions: irregular MEMBRANES Membranes: Intact FETUS A Estimated Weight (gm): 4600 Presentation: Vertex SIGNATURE SIGNATURE: [id number];[id number] SIGNATURE: [id number] Assignment: Janny Allen MD Signature: with User ID: Sim : with User ID: Sim
--- NOTE | 2017-03-10 14:45 | Delivery Summary ---
Del Sum A-C Datetime Report Generated by CPN: 03/10/2017 14:45 DELIVERY PERSONNEL DELIVERY PERSONNEL: [id number];[id number] Delivery Doctor:: Amber Setwart CNM Labor and Delivery Nurse:: Bernadette Julien RN Body Cleaner/RN BEHAVIORAL HEALTH: Tracy Trenton, COKE WHE[employer]ER Body Cleaner/RN BEHAVIORAL HEALTH: Yudi Zacarias CNA II MATERNAL INFORMATION Delivery Anesthesia: None Medications After Delivery: Pitocin Bolus-Please Comment; Pitocin Drip 20 Units/1000ml NSS; Other-Please Comment Meds After Delivery Comment: 1000 MCG Cytotec [place] 250 MCG Hemabate IM Estimated Blood Loss (ml): 250 Maternal Complications: None Provider Comments: Pt progressed to C _ P, +3 station, AROM just before delivery, thick meconium, nursery to bedside, of viable male infant over 1st degree perineal laceration. Head, shoulders, and body delivered without difficulty. Infant with spontaneous cry and respirations, to materal abdomen. Cord clamped X2, cut free by pts support person. Spontaneous delivery of intact placenta via arguello mechanism, appears intact 3 VC. 1st degree tear repaired as above. Hemostasis acheived with external fundal masssage and IV pitocin, mother and infant in stable conditon, routine pp care. LABOR SUMMARY EDC: 03/06/2017 00:00 No. Babies in Womb: 1 Attempted: No Labor Anesthesia: None LABOR INFORMATION Reason for Induction: Not Applicable Onset of Labor: 03/10/2017 06:30 Complete Dilatation: 03/10/2017 11:05 Cervical Ripening Agents: Cytotec @ 1000 MCG [place] Oxytocin: N/A Group B Beta Strep: Positive Antibiotics # of Doses: 1 Antibiotics Time of Last Dose: 1025 Name of Antibiotic Given: Penicillin Steroids Given: None Reason Steroids Not Administered: Not Applicable MEMBRANES Membranes Rupture Method: Spontaneous Rupture of Membranes: 03/10/2017 11:02 Length of Rupture (hr): 0.13 Amniotic Fluid Color: Heavy Meconium Amniotic Fluid Amount: Small Amniotic Fluid Odor: Normal STAGES OF LABOR Stage 1 hr: 4 Stage 1 min: 35 Stage 2 hr: 0 Stage 2 min: 5 Stage 3 hr: 0 Stage 3 min: 3 Total Time in Labor hr: 4 Total Time in Labor min: 43 VAGINAL DELIVERY Episiotomy: None Laceration Extension: First Degree Laceration Type: Perineal Laceration Repair: Yes Laceration Repair Note: repaired with 3-0 chromic using lidociane for anesthesia Sponge Count Correct: Yes Sharps Count Correct: Yes CSECTION DELIVERY Primary Indication: N/A Secondary Indication: N/A CSection Incidence: N/A Labor: N/A Elective: N/A CSection Incision: N/A BABY A INFORMATION Delivery Date/Time: 03/10/2017 11:10 Method of Delivery: Vaginal Born in Route : No : N/A Forceps: N/A Vacuum Extraction: N/A Shoulder Dystocia : No PRESENTATION/POSITION BABY A Presentation: Cephalic Cephalic Presentation: Vertex Vertex Position: Right Occipital Anterior Breech Presentation: N/A PLACENTA INFORMATION BABY A Placenta Delivery Time : 03/10/2017 11:13 Placenta Method of Delivery: Spontaneous Placenta Status: Delivered SCORES BABY A Heart Rate 1 min: >100 bpm Resp Effort 1 min: Good Cry Reflex Irritability 1 min: Cough or Sneeze or Pulls Away Muscle Tone 1 min: Active Motion Color 1 min: Blue/Pale Resuscitation Effort 1 min: Tactile Stimulation SCORE 1 MIN: 8 Heart Rate 5 min: >100 bpm Resp Effort 5 min: Good Cry Reflex Irritability 5 min: Cough or Sneeze or Pulls Away Muscle Tone 5 min: Active Motion Color 5 min: Body [place], Extremities Blue Resuscitation Effort 5 min: N/A SCORE 5 MIN: 9 Resuscitation Effort 10 min: N/A INFORMATION BABY A Gestational Age at Delivery: 40.4 Gestational Status: Full Term- 39- 40.6 Weeks Outcome : Liveborn Condition : Stable Sex: Male IDENTIFICATION BABY A Verification Date/Time: 03/10/2017 11:25 ID Band Number: [id number] Mother's Name Verified: Yes RN Verifying : Flor Payne, NERY, Lauren Duff, RN WEIGHT/LENGTH BABY A Birthweight (gm): 4300 Infant Weight (lb): 9 Weight (oz): 8 Length (in): 21.00 Length (cm): 53.34 CORD INFORMATION BABY A No. Cord Vessels: 3 Nuchal Cord : N/A Cord Blood Taken: Yes-For Eval (Mom's Blood Type - or O+) Infant Suction: Mouth; Nose ASSESSMENT BABY A Infant Complications: Meconium Physical Findings at Delivery: Within Normal Limits Physical Findings- Other: 1158 baby to nursery Respirations: Appears Normal Skin to Skin: Yes Skin to Skin Time (min): 20 Training Officer/ALS Called : No Care By: Alcon Wu RN Transferred To: Remains with Mother BABY B INFORMATION : N/A SIGNATURES Assignment: Janny Allen MD Signature: with User ID: Juan Aake : with User ID: Sim
[2017-03-10 15:04] LABS: BASOPHILS % (MANUAL) 0 % (0-2); EOSINOPHILS % (MANUAL) 0 % (0-6); HEMATOCRIT 32.6 % (36.0-47.0); HEMOGLOBIN 10.6 g/dL (12.0-15.5); HGB HCT DIFFERENCE -0.8; LYMPHOCYTES % (MANUAL) 20 % (13-45); MEAN CORPUSCULAR HEMOGLOBIN 26.3 pg (27.0-33.4); MEAN CORPUSCULAR HGB CONC 32.5 g/dL (32.0-36.0); MEAN CORPUSCULAR VOLUME 81 fl (80-97); RED BLOOD COUNT 4.03 10^6/uL (3.72-5.28); RED CELL DISTRIBUTION WIDTH 18.5 % (11.5-14.0); TOTAL CELLS COUNTED 100; WHITE BLOOD COUNT 21.8 10^3/uL (4.0-10.5)
[2017-03-10 15:05] LABS: ANISOCYTOSIS 2+; OVALOCYTES SLIGHT
[2017-03-10 15:06] LABS: POIKILOCYTOSIS 1+; POLYCHROMASIA SLIGHT
[2017-03-10] MEDS ORDERED: LOPERAMIDE HCL 2 MG CAPSULE PO PRN (15:17)
[2017-03-10] MEDS: IBUPROFEN 800 MG TABLET PO SCH ×2 (15:30→21:01)
--- NOTE | 2017-03-10 16:15 | Admission Physical ---
Datetime Report Generated by CPN: 03/10/2017 16:15 CURRENT ADMISSION Hx Assessment: The History has been Reviewed and is Current Chief Complaint: Uterine Contractions Indication for Induction: Not Applicable Admit Plan: Admit to Unit; Initiate Labor Induction Protocol ALLERGIES Medication Allergies: Yes Medication Allergies: nitrofurantoin macrocrystalline/MO/Generalized angel (01/21/2017); nitrofurantoin/MO/Generalized angel (01/21/2017) Medication Allergies: nitrofurantoin macrocrystalline/MO/Generalized angel (11/29/2016); nitrofurantoin/MO/Generalized angel (11/29/2016) Medication Allergies: nitrofurantoin macrocrystalline/MO/Generalized angel (10/26/2015); nitrofurantoin/MO/Generalized angel (10/26/2015) Medication Allergies: nitrofurantoin macrocrystal/MO/Generalized angel (10/26/2015); nitrofurantoin/MO/Generalized angel (10/26/2015) Latex: No Latex Allergies Food Allergies: denies Environmental Allergies: denies OBSTETRICAL HISTORY EDC: 03/06/2017 00:00 : 6 Para: 1 Term: 1 : 0 SAB: 4 IAB: 0 Ectopic: 0 Livin Cesareans: 0 VBACs: 0 Multiple Births: 0 Gestational Diabetes: No Rh Sensitization: No Incompetent Cervix: No NORMA: No Infertility: No ART Treatment: No Uterine Anomaly: No IUGR: No Hx Previous C/S: No Macrosomia: No Hx Loss/Stillborn: No PIH: No Hx : No Placenta Previa/Abruption: No Depression/PP Depression: No PTL/PROM: No Post Hemorrhage: No Current Procedures: Ultrasound Obstetrical History Comments: anemia throughout last and current , fainted twice after , PRBC's were recommended to pt but she declined, previa in first resolved and 10/28/2015 short interval 4 miscarriages SEE RECORDS Alcohol: No Marijuana : No Cocaine: No Other Illicit Drugs: No Cigarettes: Never Smoker. [id number] MEDICAL HISTORY Diabetes: No Blood Transfusion: No Pulmonary Disease (Asthma, TB): No Breast Disease: No Hypertension: No Color Consultant Surgery: No Heart Disease: No Hosp/Surgery: Yes Autoimmune Disorder: No Anesthetic Complications: No Kidney Disease: No Abnormal Pap Smear: No Neuro/Epilepsy: No Psychiatric Disorders: No Other Medical Diseases: No Hepatitis/Liver Disease: No Significant Family History: No Varicosities/Phlebitis: No Trauma/Violence : No Thyroid Dysfunction: No Medical History Comments: hemoplegic migranes INFECTIOUS HISTORY Gonorrhea: No Genital Herpes: No Chlamydia: No Tuberculosis: No Syphilis: No Hepatitis: No HIV/AIDS Exposure: No Rash or Viral Illness: No HPV: No Infectious History Comments: trich in 2012 PHYSICAL EXAM General: Normal HEENT: Normal Neurologic: Normal Thyroid: Deferred Heart: Normal Lungs: Normal Breast: Normal Back: Normal Abdomen: Normal Genitourinary Exam: Deferred Extremities: Normal DTRs: Normal Pelvic Type: Adequate Vital Signs: Reviewed VAGINAL EXAM Dilatation: 6 Effacement: 80 Contraction Comments: irregular MEMBRANES Membranes: Intact FETUS A EGA: 40.4 Monitoring: External US Estimated Weight (gm): 4600 Presentation: Vertex Admit Comment: Sent from office in labor GBS +, pcn Rh negative, rhogam Close interval EFW 97% hx: chronic hemiplegic migraines neuro Anticpate PLANS FOR LABOR AND DELIVERY Labor and Delivery: Other, Specify Pain Management: Natural Feeding Preference: Breast Benefit of Breast Feed Discussed: Yes Circumcision: Yes INFORMED CONSENT Assignment: Janny Allen MD Signature: with User ID: [email or web address] : with User ID: Sim
[2017-03-10] MEDS: FERROUS SULFATE 325 MG TABLET PO SCH (18:01)
[2017-03-10] MEDS: DOCUSATE SODIUM 100 MG CAPSULE PO SCH (18:02)
[2017-03-11] MEDS: IBUPROFEN 800 MG TABLET PO SCH ×3 (06:12→21:24)
[2017-03-11 07:39] LABS: HEMOGLOBIN 8.8 g/dL (12.0-15.5); HGB HCT DIFFERENCE -0.6; MEAN CORPUSCULAR HEMOGLOBIN 26.9 pg (27.0-33.4); MEAN CORPUSCULAR HGB CONC 32.7 g/dL (32.0-36.0); MEAN CORPUSCULAR VOLUME 82 fl (80-97); RED BLOOD COUNT 3.28 10^6/uL (3.72-5.28); RED CELL DISTRIBUTION WIDTH 18.9 % (11.5-14.0); WHITE BLOOD COUNT 12.4 10^3/uL (4.0-10.5)
[2017-03-11] MEDS: SENNOSIDES/DOCUSATE 8.6-50 MG 1 EACH TABLET PO SCH (11:50)
[2017-03-11] MEDS: PRENATAL VITAMIN W-O CA NO5/FE FUMARATE/FA CAPSULE PO SCH (11:50)
[2017-03-11] MEDS: FERROUS SULFATE 325 MG TABLET PO SCH ×2 (11:51→18:12)
--- NOTE | 2017-03-11 12:16 | PDOC PROGRESS REPORT ---
Subjective-OB Subjective: Post Delivery Day:1 22 year old G6 now P2. Ambulating and voiding without difficulty. Successful with first attempt at in nicu. Reports 1 episode of 50cent coin clot about 30min ago. Denies shortness of breath, dizziness or other concerns. Denies any needs at this time Physical Exam (OB) Vital Signs: Temp Pulse Resp BP Pulse Ox 97.9 F 69 16 120/68 99 03/11/17 11:30 03/11/17 11:30 03/11/17 11:30 03/11/17 11:30 03/11/17 11:30 Intake & Output 03/10/17 03/11/17 03/12/17 06:59 06:59 06:59 Intake Total 1500 350 Output Total 3250 Balance -1750 350 Weight 90 kg - General General Appearance: Appears well In distress: None - PIH/Pre-Eclampsia Clonus: Negative - Episiotomy/Laceration Site Condition: Well Approximated, Edematous - Lochia Lochia Amount: Scant < 10 ml Lochia Color: Rubra/Red - Abdomen Description: Soft, Flat Hernia Present: No Fundal Description: Firm, Midline Fundal Height: u/u - u/2 - Respiratory Respiratory Status: No respiratory distress Chest Status: Nontender - Extremities Upper extremity: Normal inspection Lower extremities: Normal inspection - Neurological Cognition: Normal Orientation: AAOx4 - Psychological Associated symptoms: Normal affect, Normal mood Objective-Diagnostic Laboratory: 03/11/17 07:20 03/10/17 03/11/17 03/11/17 14:20 07:20 07:20 WBC 21.8 H 12.4 H RBC 4.03 3.28 L Hgb 10.6 L 8.8 L Hct 32.6 L 27.0 L MCV 81 82 MCH 26.3 L 26.9 L MCHC 32.5 32.7 RDW 18.5 H 18.9 H Plt Count 292 261 Seg Neutrophils % Not Reportable Lymphocytes % Not Reportable Monocytes % Not Reportable Eosinophils % Not Reportable Basophils % Not Reportable Absolute Neutrophils Not Reportable Absolute Lymphocytes Not Reportable Absolute Monocytes Not Reportable Absolute Eosinophils Not Reportable Absolute Basophils Not Reportable Blood Type B NEGATIVE Assessment and Plan(PN) - Assessment and Plan (1) atony of uterus with hemorrhage Is this a current diagnosis for this admission?: YesPlan: continue to observe for inc. vaginal bleeding/uterine atony (2) Hemiparesis Qualifiers: Hemiparesis etiology: unspecified Is this a current diagnosis for this admission?: YesPlan: continue previously discussed plan, continue stay (3) Vaginal delivery Is this a current diagnosis for this admission?: YesPlan: continue stay (4) Anemia due to acute blood loss Is this a current diagnosis for this admission?: YesPlan: continue increasing diet supplementation of iron and feso4. Previously declined blood transfusion. Will obtain CBC tomorrow or earlier prn - Time Spent with Patient Time with patient: 15-25 minutes Medications reviewed and adjusted accordingly: Yes - Disposition Anticipated Discharge: Home Within: within 24 hours
[2017-03-11] MEDS: DOCUSATE SODIUM 100 MG CAPSULE PO SCH ×2 (13:30→18:15)
[2017-03-11] MEDS: ACETAMINOPHEN WITH CODEINE #3 TABLET PO PRN (15:04)
[2017-03-12] MEDS: IBUPROFEN 800 MG TABLET PO SCH (06:10)
[2017-03-12] MEDS: ACETAMINOPHEN WITH CODEINE #3 TABLET PO PRN (08:41)
[2017-03-12] MEDS: PRENATAL VITAMIN W-O CA NO5/FE FUMARATE/FA CAPSULE PO SCH (09:25)
[2017-03-12] MEDS: DOCUSATE SODIUM 100 MG CAPSULE PO SCH (09:25)
[2017-03-12] MEDS: FERROUS SULFATE 325 MG TABLET PO SCH (09:26)
[2017-03-12] MEDS: SENNOSIDES/DOCUSATE 8.6-50 MG 1 EACH TABLET PO SCH (09:30)
--- NOTE | 2017-03-12 12:22 | PDOC DISCHARGE SUMMARY ---
Final Diagnosis - Final Diagnosis (1) atony of uterus with hemorrhage Is this a current diagnosis for this admission?: Yes (2) Hemiparesis Is this a current diagnosis for this admission?: Yes (3) Vaginal delivery Is this a current diagnosis for this admission?: Yes Discharge Data - Discharge Medication Home Medications: Ferrous Sulfate [Feosol 325 mg Tablet] 325 mg PO BID #0 tablet 10/30/15 Cgb031/Iron Fumarate/FA/Dss [ 19 Tablet] 1 each PO DAILY 11/29/16 Reason(s) for Admission: Onset of Labor Intrapartum Procedure(s): Spontaneous Vaginal Delivery Complication(s): Laceration-Perineal Laceration-Degree: 2nd - Diagnosis Test Laboratory: Temp Pulse Resp BP Pulse Ox 98.0 F 81 18 137/65 H 100 03/12/17 07:32 03/12/17 07:32 03/12/17 07:32 03/12/17 07:32 03/12/17 07:32 03/10/17 03/10/17 03/10/17 10:00 10:30 14:20 RBC 3.93 4.03 Hgb 10.6 L 10.6 L Hct 32.2 L 32.6 L Urine Opiates Screen NEGATIVE 03/11/17 07:20 RBC 3.28 L Hgb 8.8 L Hct 27.0 L Urine Opiates Screen - Discharge information/Instructions Discharge Activity: Balance Activity w/Rest Discharge Diet: Regular Disposition: HOME, SELF-CARE Follow up with: [facility] in: 4
[2017-03-12 12:26] LABS: HEMATOCRIT 21.3 % (36.0-47.0); MEAN CORPUSCULAR HEMOGLOBIN 27.3 pg (27.0-33.4); MEAN CORPUSCULAR HGB CONC 33.6 g/dL (32.0-36.0); MEAN CORPUSCULAR VOLUME 81 fl (80-97); RED BLOOD COUNT 2.62 10^6/uL (3.72-5.28); RED CELL DISTRIBUTION WIDTH 18.9 % (11.5-14.0); WHITE BLOOD COUNT 9.4 10^3/uL (4.0-10.5)
[2017-03-12 12:27] LABS: HEMOGLOBIN 7.1 g/dL (12.0-15.5)
--- NOTE | 2017-03-12 12:32 | PDOC PROGRESS REPORT ---
Subjective-OB Subjective: Post Delivery Day: 22 year old. Denies any needs at this time doing well hgb down to 7.1 pt to continue iron bid and increase iron rich diet d/c home instructions given rtc 4 weeks Physical Exam (OB) Vital Signs: Temp Pulse Resp BP Pulse Ox 98.0 F 81 18 137/65 H 100 03/12/17 07:32 03/12/17 07:32 03/12/17 07:32 03/12/17 07:32 03/12/17 07:32 Intake & Output 03/11/17 03/12/17 03/13/17 06:59 06:59 06:59 Intake Total 1500 650 Output Total 3250 Balance -1750 650 Weight 90 kg - PIH/Pre-Eclampsia DTR's: 2 + Clonus: Negative Headache: Absent Epigastric Pain: No Visual Changes: No - Lochia Lochia Amount: Scant < 10 ml Lochia Color: Rubra/Red - Abdomen Description: Soft, Round Hernia Present: No Fundal Description: Firm Fundal Height: u/u - u/2 Objective-Diagnostic Laboratory: 03/12/17 12:10 03/11/17 03/12/17 07:20 12:10 WBC 9.4 RBC 2.62 L Hgb 7.1 L Hct 21.3 L MCV 81 MCH 27.3 MCHC 33.6 RDW 18.9 H Plt Count 255 Blood Type B NEGATIVE Assessment and Plan(PN) - Assessment and Plan (1) atony of uterus with hemorrhage Is this a current diagnosis for this admission?: Yes (2) Hemiparesis Qualifiers: Hemiparesis etiology: unspecified Is this a current diagnosis for this admission?: Yes (3) Vaginal delivery Is this a current diagnosis for this admission?: Yes - Time Spent with Patient Medications reviewed and adjusted accordingly: Yes - Disposition Anticipated Discharge: Home
[2017-03-12 12:59] VITALS: BP 120/66
== END 2017-03-12 13:25 | disposition home or self-care (01) | DRG 774 ==
LOC: LR 09:55 → 2N 16:09
PROVIDERS: ADMIT Specialist; ATTEND Specialist
PROC: 10E0XZZ Delivery of Products of Conception, External Approach (ICD-10-PCS; principal; 2017-03-10)
PROC: 0KQM0ZZ Repair Perineum Muscle, Open Approach (ICD-10-PCS; 2017-03-10)
PROC: 3E0P7GC Introduction of Other Therapeutic Substance into Female Reproductive, Via Natural or Artificial Opening (ICD-10-PCS; 2017-03-10)
PROC: 4A1HXCZ Monitoring of Products of Conception, Cardiac Rate, External Approach (ICD-10-PCS; 2017-03-10)
PROC: 3E0234Z Introduction of Serum, Toxoid and Vaccine into Muscle, Percutaneous Approach (ICD-10-PCS; 2017-03-11)
DX: O99.824 Streptococcus B carrier state complicating childbirth (principal); O72.1 Other immediate postpartum hemorrhage; D62 Acute posthemorrhagic anemia; O26.893 Other specified pregnancy related conditions, third trimester; Z67.21 Type B blood, Rh negative; O21.0 Mild hyperemesis gravidarum; O70.1 Second degree perineal laceration during delivery; O71.89 Other specified obstetric trauma; O99.02 Anemia complicating childbirth; O77.0 Labor and delivery complicated by meconium in amniotic fluid; Z88.3 Allergy status to other anti-infective agents; Z3A.40 40 weeks gestation of pregnancy; Z37.0 Single live birth
CPT/HCPCS: 36415; 80307; 81005; 85025; 85027; 85461; 86592; 86850; 86900; 86901; J1170; J2540; J2590; J2790; J3490; S0119

== ENCOUNTER 2017-09-12 11:49 | Emergency (ER) | payer MEDICAID ==
[2017-09-12 12:08] VITALS: BP 122/64
[2017-09-12] MEDS ORDERED: LIDOCAINE 5% (700 MG) TRANSDERMAL ADH..PATCH TP ONE (14:14)
--- NOTE | 2017-09-12 14:17 | ER Document Report ---
ED Extremity Problem, Upper - General Chief Complaint: Shoulder Pain Stated Complaint: SHOULDER,BACK PAIN Time Seen by Provider: 09/12/17 13:54 Mode of Arrival: Ambulatory Information source: Patient Notes: 22-year-old female presented to ED for complaint of pain to her right shoulder after she bent over this morning to hand picker her child. She states she felt extreme pain went to work and they told her that if she could not hand picker the children that she needs to go get seen by TRAVEL OUTSIDE OF THE [place] IN LAST 30 DAYS: No - HPI Patient complains to provider of: Right, Shoulder Onset: This morning Recent injury: No Where: Home, Outdoors Quality of pain: Sharp Severity of pain: Moderate Pain Level: 4 Context: Other - Lifting her child Associated symptoms: None Exacerbated by: Movement, Exertion Relieved by: Nothing Similar symptoms previously: Yes Recently seen / treated by doctor: No - Related Data Allergies/Adverse Reactions: nitrofurantoin [From Macrobid] Allergy (Intermediate, Verified 09/12/17 11:54) Generalized rash nitrofurantoin macrocrystalline [From Macrobid] Allergy (Intermediate, Verified 09/12/17 11:54) Generalized rash Past Medical History - General Information source: Patient - Social History Smoking Status: Former Smoker Cigarette use (# per day): No Chew tobacco use (# tins/day): No Smoking Education Provided: No Frequency of alcohol use: None Drug Abuse: None Occupation: Childcare Lives with: Parents Family History: CAD, CVA, DM, Hyperlipidemia, Hypertension, Thyroid Disfunction , Other - Hemiplegic migraine. denies: Arthritis, COPD, Malignancy Patient has suicidal ideation: No Patient has homicidal ideation: No - Past Medical History Cardiac Medical History: Reports: None Pulmonary Medical History: Reports: None EENT Medical History: Reports: None Neurological Medical History: Reports: None, Hx Migraine. Denies: Hx Seizures Endocrine Medical History: Reports: None Renal/ Medical History: Reports: None Malignancy Medical History: Reports: None GI Medical History: Reports: None Musculoskeltal Medical History: Reports None Skin Medical History: Reports None Psychiatric Medical History: Reports: None Traumatic Medical History: Reports: None Infectious Medical History: Reports: None Past Surgical History: Reports: Hx Adenoidectomy, Hx Oral Surgery - wisdom, Hx Tonsillectomy - ADNOIDS - Immunizations Immunizations up to date: Yes Hx Diphtheria, Pertussis, Tetanus Vaccination: Yes Review of Systems - Review of Systems Constitutional: No symptoms reported EENT: No symptoms reported Cardiovascular: No symptoms reported Respiratory: No symptoms reported Gastrointestinal: No symptoms reported Genitourinary: No symptoms reported Female Genitourinary: No symptoms reported Musculoskeletal: No symptoms reported Skin: No symptoms reported Hematologic/Lymphatic: No symptoms reported Neurological/Psychological: No symptoms reported -: Yes All other systems reviewed and negative Physical Exam - Vital signs Vitals: Temp Pulse Resp BP Pulse Ox 98.6 F 60 16 122/64 99 09/12/17 12:06 09/12/17 12:06 09/12/17 12:06 09/12/17 12:06 09/12/17 12:06 Interpretation: Normal - General General appearance: Appears well, Alert - HEENT Head: Normocephalic, Atraumatic Eyes: Normal Pupils: PERRL - Respiratory Respiratory status: No respiratory distress Chest status: Nontender Breath sounds: Normal Chest palpation: Normal - Cardiovascular Rhythm: Regular Heart sounds: Normal auscultation Murmur: No - Abdominal Inspection: Normal Distension: No distension Bowel sounds: Normal Tenderness: Nontender Organomegaly: No organomegaly - Back Back: Normal, Tender - Upper right back around the scapula. No: Deformity/step- off, CVA tenderness, Vertebra tenderness, Scars, Scoliosis, Wounds - Extremities General upper extremity: Normal inspection, Normal color, Normal ROM, Normal temperature General lower extremity: Normal inspection, Nontender, Normal color, Normal ROM , Normal temperature, Normal weight bearing. No: Cherie's sign Shoulder: Tender. No: Abrasion, Deformity, Dislocation, Ecchymosis, Instability , Laceration, Limited ROM Arm: Normal, Nontender Elbow: Normal, Nontender Forearm: Normal, Nontender Hand: Normal, Nontender - Neurological Neuro grossly intact: Yes Cognition: Normal Orientation: AAOx4 Rodrigo Coma Scale Eye Opening: Spontaneous Rodrigo Coma Scale Verbal: Oriented Rodrigo Coma Scale Motor: Obeys Commands Rodrigo Coma Scale Total: 15 Speech: Normal Motor strength normal: LUE, RUE, LLE, RLE Sensory: Normal - Psychological Associated symptoms: Normal affect, Normal mood - Skin Skin Temperature: Warm Skin Moisture: Dry Skin Color: Normal Course - Re-evaluation Re-evalutation: 09/12/17 21:10 There was no bony tenderness to this young lady's pain. She had muscular tenderness. She did not fall and she had full range of motion to the shoulder and arm. She did state that the pain was just below her right scapula. Patient was given instructions for ibuprofen ice and warm packs and discharged home to follow-up with her primary doctor. - Vital Signs Vital signs: Temp Pulse Resp BP Pulse Ox 98.6 F 60 16 122/64 99 09/12/17 12:06 09/12/17 12:06 09/12/17 12:06 09/12/17 12:06 09/12/17 12:06 Discharge - Discharge Clinical Impression: Muscle strain Condition: Stable Disposition: HOME, SELF-CARE Additional Instructions: MUSCLE STRAIN: You have strained a muscle -- torn the fibers within the muscle. This often occurs with strenuous exertion, or during an injury that suddenly stretches the muscle. The seriousness of a strain varies. Some strains heal within days, others cause problems for months. X-rays cannot show a muscle strain. X-rays are taken only if symptoms suggest that a fracture could be present. The usual treatment of a muscle strain is rest and ice packs. Sometimes, a sling, splint, or crutches may be necessary to rest the muscle. The muscle can be used again once pain subsides. Severe strains require a special exercise and stretching program to prevent permanent stiffness and disability. Your doctor will advise you if this will be necessary. Call the doctor immediately if pain or swelling becomes severe, or if numbness or discoloration develop. USE OF TYLENOL (ACETAMINOPHEN): Acetaminophen may be taken for pain relief or fever control. It's much safer than aspirin, offering a wider range of "safe" dosages. It is safe during . Some brand names are Tylenol, Panadol, Datril, Anacin 3, Tempra, and Liquiprin. Acetaminophen can be repeated every four hours. The following are maximum recommended dosages: WEIGHT Dose Drops Elixir Chewable( 80mg) (LBS.) drprs=droppers tsp=teaspoon 6 40 mg 0.4 ml (1/2) 6-11 80 mg 0.8 ml (full) tsp 1 tab 12-16 120 mg 1 1/2 drprs 3/4 tsp 1 1/2 tabs 17-23 160 mg 2 drprs 1 tsp 2 tabs 24-30 240 mg 3 drprs 1 1/2 tsp 3 tabs 30-35 320 mg 2 tsp 4 tabs 36-41 360 mg 2 1/4 tsp 4 1/2 tabs 42-47 400 mg 2 1/2 tsp 5 tabs 48-53 480 mg 3 tsp 6 tabs 54-59 520 mg 3 1/4 tsp 6 1/2 tabs 60-64 560 mg 3 1/2 tsp 7 tabs 65-70 600 mg 3 3/4 tsp 7 1/2 tabs 71-76 640 mg 4 tsp 8 tabs 77-82 720 mg 4 1/2 tsp 9 tabs 83-88 800 mg 5 tsp 10 tabs >89 pounds or adults 650 mg to 900 mg Acetaminophen can be repeated every four hours. Maximum dose not to exceed 4000 mg a day. These maximum recommended dosages are slightly higher than the dosages written on the product container, but these dosages are very safe and below the toxic dosage for acetaminophen. ICE PACKS: Apply ice packs frequently against the painful area. Many different schedules are recommended, such as "20 minutes on, 20 minutes off" or "one hour ice, two hours rest." If you need to work, you may need to go longer between ice treatments. You should plan to have the area ice packed AT LEAST one fourth of the time. The ice should be applied over the wrap, tape, or splint, or over a layer of cloth -- not directly against the skin. Some ice bags have a built-in cloth and can be put directly on the skin. WARM PACKS: After approximately two days, apply gentle heat (such as a heating pad or hot water bottle) for about 20 to 30 minutes about every two hours -- at least four times daily. Warmth and elevation will help you make a more rapid recovery , and will ease the pain considerably. Do not use HOT heat, and never apply heat for longer than 30 minutes. The continuous heat can invisibly damage skin and muscles -- even when no burn is seen on the surface. Damaged muscles can make you MORE sore. MUSCLE RELAXERS: Muscle relaxing medications are usually prescribed for acute muscle spasm or injury to the neck and back. They are often combined with antiinflammatory pain medication for increased relief. You may stop the muscle relaxer when the pain and stiffness have improved. Start the medication again if spasms recur. Muscle relaxers may cause drowsiness, especially with the first dose. Do not operate machinery or drive while under the effects of the medication. Most muscle relaxers last up to 24 hours. Do not combine the medication with alcohol. Exercise Program for the Shoulder Since the shoulder moves in so many directions, the joint attachment is weak. Muscles provide most of the stability to the shoulder. You must exercise your shoulder to prevent painful instability or stiffening. PASSIVE - These may be begun within a few days of the injury. While standing, lean forward, allowing the arm to hang down towards the floor. Move the arm in small circles while slowly twisting your chest towards and away from the hanging arm. Do this for one minute. ACTIVE - These may be performed when the doctor gives permission. Begin with the arms at the sides. Raise the arms forward (shoulder's width apart) until they reach shoulder level. Then slowly swing both arms back until they are aiming straight out away from each other. Then bring them forward again, and finally, lower them to your sides. Repeat 20 to 30 times. As you improve, put weights in your hands for the exercise. Start with one pound, and work up to 10 pounds. Never use more than is comfortable. Athletes may work up to 30 pounds. FOLLOW-UP CARE: If you have been referred to a physician for follow-up care, call the physician s office for an appointment as you were instructed or within the next two days. If you experience worsening or a significant change in your symptoms, notify the physician immediately or return to the Emergency Department at any time for re-evaluation. Prescriptions: Cyclobenzaprine HCl [Flexeril 5 mg Tablet] 5 mg PO TID #15 tablet Forms: Return to Work Referrals: ALEXY WALTER MD [ACTIVE STAFF] - Follow up as needed
== END 2017-09-12 14:24 | disposition home or self-care (01) ==
LOC: ER 11:49
DX: S46.911A Strain of unspecified muscle, fascia and tendon at shoulder and upper arm level, right arm, initial encounter (principal); M25.511 Pain in right shoulder; M54.9 Dorsalgia, unspecified; Z87.891 Personal history of nicotine dependence; X50.0XXA Overexertion from strenuous movement or load, initial encounter
CPT/HCPCS: 99283; J3490

== ENCOUNTER 2017-09-15 09:45 | Emergency (ER) | payer SELFPAY ==
[2017-09-15] MEDS ORDERED: ACETAMINOPHEN 325 MG TABLET PO ONE (11:03)
--- NOTE | 2017-09-15 11:14 | ER Document Report ---
HPI - HPI Pain Level: 3 Notes: Patient is a 22-year-old female with no significant past medical history who presents the ED complaining of nasal congestion/discharge, fever, body, dry nonproductive cough 2 days. Patient states that she is still eating and drinking without difficulties. She is urinating normally having normal bowel movements. Patient states that she has been exposed to the flu. She has no other concerns or complaints at this time. Denies any smoking or IV drug use. Denies any headache, neck pain, sore throat, chest pain, palpitations, syncope, shortness of breath, wheeze, dyspnea, abdominal pain, nausea/vomiting/diarrhea, urinary retention, dysuria, hematuria, or rash. - ROS Notes: PHYSICAL EXAMINATION: GENERAL: Well-appearing, well-nourished and in no acute distress. A&Ox4 HEAD: Atraumatic, normocephalic. EYES: Pupils equal round and reactive to light, extraocular movements intact, sclera anicteric, conjunctiva are normal. ENT: EAC clear b/l. TM's intact b/l without erythema, fluid, or perforation. Nares patent and with clear discharge. oropharynx mild erythema without exudates. 1+ tonsilar hypertrophy without erythema or exudate. No palatine shift. Uvula midline. No tongue protrusion. No drooling, hoarseness, or airway compromise. Moist mucous membranes. No sinus tenderness. NECK: Normal range of motion, supple without lymphadenopathy. No rigidity/ meningismus. LUNGS: Breath sounds clear to auscultation bilaterally and equal. No wheezes rales or rhonchi. No retractions HEART: Regular rate and rhythm without murmurs, rubs, gallops. ABDOMEN: Soft, nontender, nondistended abdomen. No guarding, no rebound. No masses appreciated. Normal bowel sounds present. No CVA tenderness bilaterally. No hepatosplenomegaly. NEUROLOGICAL: Normal speech, normal gait. Normal sensory, motor exams PSYCH: Normal mood, normal affect. SKIN: Warm, Dry, normal turgor, no rashes or lesions noted. - CONSTITUTIONAL Constitutional: REPORTS: Fever, Chills - EENT EENT: REPORTS: Sore Throat - NEURO Neurology: REPORTS: Headache - RESPIRATORY Respiratory: REPORTS: Coughing - REPRODUCTIVE Reproductive: REPORTS: : Past Medical History - Social History Smoking Status: Unknown if Ever Smoked Chew tobacco use (# tins/day): No Frequency of alcohol use: None Drug Abuse: None Family History: CAD, CVA, DM, Hyperlipidemia, Hypertension, Thyroid Disfunction , Other - Hemiplegic migraine. denies: Arthritis, COPD, Malignancy Patient has suicidal ideation: No Patient has homicidal ideation: No - Past Medical History Cardiac Medical History: Denies: Hx Heart Attack, Hx Hypertension Pulmonary Medical History: Denies: Hx Asthma, Hx Bronchitis, Hx COPD, Hx Pneumonia Neurological Medical History: Reports: Hx Migraine. Denies: Hx Seizures Renal/ Medical History: Denies: Hx Peritoneal Dialysis Musculoskeltal Medical History: Denies Hx Arthritis Past Surgical History: Reports: Hx Adenoidectomy, Hx Oral Surgery - wisdom, Hx Tonsillectomy - ADNOIDS. Denies: Hx Hysterectomy - Immunizations Immunizations up to date: Yes Hx Diphtheria, Pertussis, Tetanus Vaccination: Yes Vertical Provider Document - CONSTITUTIONAL Agree With Documented VS: No - HR 98 on exam - INFECTION CONTROL TRAVEL OUTSIDE OF THE [place] IN LAST 30 DAYS: No - RESPIRATORY O2 Sat by Pulse Oximetry: 98 Course - Re-evaluation Re-evalutation: 09/15/17 11:12 Patient is an afebrile, well-hydrated, 22-year-old female who presents the ED with acute URI, suspect influenza. Vitals are stable. PE is otherwise unremarkable. Rapid influenza is pending, although will not change treatment at this time for this patient who has low risk factors. No other labs or imaging warranted at this time based on H&P. Tylenol was given p.o. today. Low suspicion for any meningitis, sepsis, peritonsillar/pharyngeal abscess, respiratory compromise, Cesar's, or other emergent systemic condition at this time. Patient is aware this condition can change from initial presentation and she needs to monitor symptoms closely. Conservative measures otherwise for symptoms. Recheck with your PCM in 2-3 days. Return to the ED with any worsening/concerning symptoms otherwise as reviewed in discharge. Patient is in agreement. - Vital Signs Vital signs: Temp Pulse Resp BP Pulse Ox 99.9 F 120 H 15 105/57 L 98 09/15/17 09:52 09/15/17 09:52 09/15/17 09:52 09/15/17 09:52 09/15/17 09:52 Discharge - Discharge Clinical Impression: Acute URI, Influenza Condition: Stable Disposition: HOME, SELF-CARE Instructions: Upper Respiratory Illness ([facility]), Influenza ([facility]) Additional Instructions: Maintain adequate fluid intake Take meds as directed tylenol/ibuprofen as needed over the counter cold medication as needed for symptoms Humidified air may help F/u: with your PCM in 2-3 days for a recheck Return to the ED with any fever, worsening pain, chest pain, palpitations, syncope, worsening VERA, neck pain/stiffness, shortness of breath, wheezing, drooling, trouble swallowing/breathing, abdominal pain, n/v/d, rash, or worsening/concerning symptoms otherwise. Referrals: [facility] [Provider Group] - Follow up as needed [facility] [Provider Group] - Follow up as needed
[2017-09-15 11:58] LABS: A TYPE INFLUENZA AG NEGATIVE (NEGATIVE); B INFLUENZA AG NEGATIVE (NEGATIVE)
[2017-09-15 12:28] VITALS: BP 114/60
== END 2017-09-15 12:29 | disposition home or self-care (01) ==
LOC: ER 09:45
DX: O99.519 Diseases of the respiratory system complicating pregnancy, unspecified trimester (principal); J11.1 Influenza due to unidentified influenza virus with other respiratory manifestations; J35.1 Hypertrophy of tonsils; O26.899 Other specified pregnancy related conditions, unspecified trimester; R05 Cough; R51 Headache; Z3A.00 Weeks of gestation of pregnancy not specified
CPT/HCPCS: 87804; 99283

== ENCOUNTER 2019-01-25 12:22 | Emergency (ER) | payer OTHER ==
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
[2019-01-25 15:53] VITALS: BP 121/65
--- NOTE | 2019-01-25 20:16 | EKG REPORT ---
SEVERITY:- NORMAL ECG - SINUS RHYTHM : Confirmed by: Juan Carlos Mcmillan MD 25-Jan-2019 20:15:39
== END 2019-01-25 15:53 | disposition home or self-care (01) ==
LOC: ER 12:22
DX: S09.90XA Unspecified injury of head, initial encounter (principal); M25.532 Pain in left wrist; R10.32 Left lower quadrant pain; M79.642 Pain in left hand; V87.7XXA Person injured in collision between other specified motor vehicles (traffic), initial encounter
CPT/HCPCS: 74177; 81025; 93005; 93010; 99284